=== PATIENT | female | born 1990 | race Caucasian/White ===

== ENCOUNTER 2016-05-19 11:29 | Emergency (ER) | payer OTHER ==
[2016-05-19 11:44] VITALS: BMI 36.0
[2016-05-19] MEDS ORDERED: SODIUM CHLORIDE 1,000 ML IV STA ×2 (12:19→13:35)
[2016-05-19] MEDS ORDERED: KETOROLAC TROMETHAMINE 30 MG/1 ML VIAL IVPUSH ONE (12:39)
[2016-05-19] MEDS ORDERED: KETOROLAC TROMETHAMINE 30 MG/1 ML VIAL ONE (12:46)
--- NOTE | 2016-05-19 12:52 | PDOC ---
History of Present Illness - General Chief Complaint: Pain Stated Complaint: FEVER, BACK PAIN, IMBALANCE Time Seen by Provider: 05/19/16 12:02 History Source: Patient Exam Limitations: No Limitations - History of Present Illness Travel History: No Initial Comments: 05/19/16 12:55 26-year-old female with history of renal colic and stent placement under the care of Dr. Diana presents the ED with complaints of urinary frequency and urgency for the past 2 days now associated with bilateral flank pain back pain, and fever. Patient also mentions that her throat has been hurting her and causing difficulty swallowing since last night. Patient denies nausea, headache , dizziness, upper abdominal pain, irregular menses, or diarrhea. Timing/Duration: reports: getting worse Quality: reports: mild, cramping, sharpness Abdominal Pain Onset Location: reports: flank Pain Radiation: reports: no radiation Activities at Onset: reports: none Aggravating Factors: improves with: None Alleviating Factors: improves with: None Past History - Past Medical History Allergies/Adverse Reactions: Allergies Allergy/AdvReac Type Severity Reaction Status Date / Time milk Allergy Verified 05/19/16 11:42 Penicillins Allergy Verified 05/19/16 11:42 piperacillin sodium Allergy Verified 05/19/16 11:42 [From Zosyn] tazobactam sodium Allergy Verified 05/19/16 11:42 [From Zosyn] tomato Allergy Verified 05/19/16 11:42 Home Medications: Ambulatory Orders Azithromycin [Zithromax 250mg Tablets -] 250 mg PO UTDICT #6 tab 05/19/16 Cardiac Disorders: Yes (IRREGULAR HEARTBEAT) Disorders: Yes (KIDNEY STONES) Kidney Stones: Yes Psychiatric Problems: Yes (anxiety) Suicide Attempt (Hx): No Thyroid Disease: Yes - Surgical History Abdominal Surgery: Yes Cholecystectomy: Yes - Psycho/Social/Smoking Cessation Hx Anxiety: Yes Suicidal Ideation: No Smoking Status: Yes Smoking History: Never smoked Have you smoked in the past 12 months: No Number of Cigarettes Smoked Daily: 2 If you are a former smoker, when did you quit?: 2012 Information on smoking cessation initiated: No 'Breaking Loose' booklet given: 06/23/14 Hx Alcohol Use: No Drug/Substance Use Hx: No Substance Use Type: None Hx Substance Use Treatment: No Patient Lives Alone: No Lives with/in: parents Review of Systems - Review of Systems Able to Perform ROS?: Yes Constitutional: Yes: Fever HEENTM: No: Symptoms Reported Respiratory: No: Symptoms reported Cardiac (ROS): No: Symptoms Reported ABD/GI: Yes: Abdominal cramping : Yes: Dysuria, Frequency, Flank Pain Musculoskeletal: Yes: Back Pain Integumentary: No: Symptoms Reported Neurological: No: Symptoms reported Endocrine: No: Symptoms Reported *Physical Exam - Vital Signs Last Vital Signs Temp Pulse Resp BP Pulse Ox 99 F 108 H 18 144/88 99 05/19/16 11:42 05/19/16 11:42 05/19/16 11:42 05/19/16 11:42 05/19/16 11:42 - Physical Exam General Appearance: Yes: Nourished, Appropriately Dressed. No: Apparent Distress HEENT: positive: Normal Voice, Pharyngeal Erythema (mild). negative: Pale Conjunctivae, Tonsillar Exudate Neck: positive: Supple Respiratory/Chest: positive: Lungs Clear, Normal Breath Sounds. negative: Respiratory Distress, Accessory Muscle Use Cardiovascular: positive: Regular Rhythm, Regular Rate. negative: Murmur Gastrointestinal/Abdominal: positive: Soft. negative: Tenderness Musculoskeletal: positive: CVA Tenderness (bilateral) Extremity: positive: Normal Capillary Refill. negative: Pedal Edema Integumentary: positive: Normal Color, Warm, Moist Neurologic: positive: Motor Strength 5/5 (ambulatory) ED Treatment Course - LABORATORY CBC & Chemistry Diagram: 05/19/16 12:30 05/19/16 12:30 - RADIOLOGY Radiology Studies Ordered: Category Date Time Status KIDNEY / RENAL US [US] Stat Ultrasound 05/19/16 12:21 Ordered Medical Decision Making - Medical Decision Making 05/19/16 12:59 Patient with history of renal colic complaining of urinary frequency now with sore throat and fever. Patient exam had CVA tenderness bilateral with mild erythema to her posterior pharynx. Patient ordered for labs including septic workup, kidney ultrasound, urine , and rapid strep. 05/19/16 13:34 Laboratory Tests 05/19/16 05/19/16 05/19/16 12:21 12:30 12:30 WBC 15.2 H Hgb 13.1 Hct 39.7 Plt Count 265 Neutrophils % 78.4 Sodium Potassium Carbon Dioxide Anion Gap Creatinine Lactic Acid AST ALT Urine Ketones Negative Urine Nitrite Negative Ur Leukocyte Esterase Negative Urine RBC 5 Urine WBC 2 Urine HCG, Qual Negative 05/19/16 05/19/16 12:30 12:30 WBC Hgb Hct Plt Count Neutrophils % Sodium 141 Potassium 3.9 Carbon Dioxide 28 D Anion Gap 9 Creatinine 0.9 Lactic Acid 0.766 AST 19 ALT 18 D Urine Ketones Urine Nitrite Ur Leukocyte Esterase Urine RBC Urine WBC Urine HCG, Qual Ultrasound shows no evidence of nephrolithiasis, hydronephrosis or acute pathology. Patient ordered for an additional bag of IV fluids and morphine. 05/19/16 14:18 Positive for strep a. Patient will be discharged home with Z-José Antonio. Patient aware that she will receive a phone call if the urine culture is positive. Patient otherwise can take Tylenol for discomfort and drink plenty of fluids, and take antibiotics. *DC/Admit/Observation/Transfer Diagnosis at time of Disposition: Bilateral flank pain, Strep throat - Discharge Dispostion Disposition: HOME Condition at time of disposition: Good - Prescriptions Prescriptions: Azithromycin [Zithromax 250mg Tablets -] 250 mg PO UTDICT #6 tab - Referrals Referrals: Brenda Luke [Primary Care Provider] - - Patient Instructions Printed Discharge Instructions: DI for Strep Throat, DI for Flank Pain Additional Instructions: At this time your urine does not show an infection but you will receive a phone call in 2 days if positive. In the interim you need to take azithromycin for strep throat, Tylenol for discomfort, and drink plenty of fluids.
[2016-05-19 12:54] LABS: BASOPHIL 0.3 % (0-2.0); EOSINOPHIL 0.1 % (0-4.5); MCH 28.8 pg (25.7-33.7); MCHC 32.9 g/dl (32.0-36.0); MEAN CELL VOLUME 87.3 fl (80-96); MEAN PLT VOLUME 7.9 fl (7.5-11.1); NEUTROPHILS 78.4 % (42.8-82.8); PLATELET COUNT 265 K/MM3 (134-434); RDW 13.3 % (11.6-15.6); WHITE BLOOD COUNT 15.2 K/mm3 (4.0-10.0)
[2016-05-19 12:57] LABS: URINE APPEARANCE CLEAR; URINE BILIRUBIN NEGATIVE (NEGATIVE); URINE COLOR YELLOW; URINE GLUCOSE (UA) NEGATIVE (NEGATIVE); URINE KETONE NEGATIVE (NEGATIVE); URINE LEUK ESTERASE NEGATIVE (NEGATIVE); URINE NITRITE NEGATIVE (NEGATIVE); URINE PROTEIN NEGATIVE (NEGATIVE); URINE UROBILINOGEN NEGATIVE E.U./dl (0.2-1.0)
[2016-05-19 13:00] LABS: URINE BLOOD 1+ (NEGATIVE)
[2016-05-19 13:07] LABS: URINE BACTERIA RARE /hpf (NONE SEEN); URINE MUCUS MODERATE; URINE RBC 5 /hpf (0-3); URINE WBC 2 /hpf (3-5)
[2016-05-19 13:16] LABS: ALBUMIN 3.7 g/dl (3.4-5.0); ANION GAP 9 (8-16); BILIRUBIN,TOTAL 0.4 mg/dL (0.2-1.0); CALCIUM 8.7 mg/dL (8.5-10.1); CO2 28 mmol/L (21-32); CREATININE 0.9 mg/dL (0.55-1.02); GLUCOSE,RANDOM 79 mg/dL (74-106); SGPT/ALT 18 U/L (12-78); TOT PROT 7.5 g/dl (6.4-8.2)
[2016-05-19 13:17] LABS: ALK PHOS 89 U/L (45-117)
[2016-05-19 13:28] LABS: SGOT/AST 19 U/L (15-37)
[2016-05-19] MEDS ORDERED: morphine CARPU-JECT 2 MG/1 ML DISP.SYRIN IVPUSH ONE (13:35)
[2016-05-19] MEDS ORDERED: morphine CARPU-JECT 4 MG/1 ML DISP.SYRIN ONE (13:41)
[2016-05-19 14:51] VITALS: BP 127/57; PULSE 73; TEMP 98.6
--- NOTE | 2016-05-21 14:17 | PDOC ---
Patient Follow-up (Call Back) - Post ED Follow - Up Condition at time of discharge: Good Disposition at time of original discharge: HOME Reason for Call Back: Abnwl. Microbiology (+[facility], pt currently on zpack +esbl ecoli on uti, sen to simone Called and left message for pt to call back)
== END 2016-05-19 16:05 | disposition home or self-care (01) ==
LOC: JER 11:29
PROC: 3E0337Z Introduction of Electrolytic and Water Balance Substance into Peripheral Vein, Percutaneous Approach (ICD-10-PCS; principal; 2016-05-19)
PROC: 3E033NZ Introduction of Analgesics, Hypnotics, Sedatives into Peripheral Vein, Percutaneous Approach (ICD-10-PCS; 2016-05-19)
PROC: 3E0333Z Introduction of Anti-inflammatory into Peripheral Vein, Percutaneous Approach (ICD-10-PCS; 2016-05-19)
DX: J02.0 Streptococcal pharyngitis (principal); B95.0 Streptococcus, group A, as the cause of diseases classified elsewhere
CPT/HCPCS: 36415; 76775-TC; 80053; 81003; 81015; 83605; 84703; 85025; 87040; 87070; 87086; 87186; 87430; 99283-25

== ENCOUNTER 2016-08-05 15:44 | Emergency (ER) | payer OTHER ==
[2016-08-05 15:56] VITALS: BP 126/75; PULSE 98; BMI 32.8
--- NOTE | 2016-08-05 16:13 | PDOC ---
History of Present Illness - General History Source: Patient, Old Records Exam Limitations: No Limitations - History of Present Illness Initial Comments: 08/05/16 18:49 The patient is a 26 year old female, with a significant past medical history of kidney stones, who presents to the emergency department with bilateral flank pain and dysuria since yesterday. She describes her pain as ranging from mild to moderate, without radiation or modifying factors. She denies taking any medication for the pain. She reports that her last episode of kidney stones was 4 months ago and her last CT scan was over 6 months. She also reports nausea and chills associated with her chief complaint. She notes that she is currently abstinence from sexual encounters. The patient denies chest pain, shortness of breath, headache and dizziness. Denies fever, vomit, diarrhea and constipation. Denies frequency, urgency and hematuria. Allergies: Penicillin, zosyn, milk and tomatoes Past surgical history: Cholecystectomy Social history: No alcohol, tobacco or drug use reported Urologyist - Dr. Marta Diana <Chilo Reynoso - Last Filed: 08/05/16 19:36> <Jovanni Baum - Last Filed: 08/05/16 23:36> - General Chief Complaint: Urinary Problem Stated Complaint: BACK PAIN, URINARY BURNING Time Seen by Provider: 08/05/16 16:11 Past History <Chilo Reynoso - Last Filed: 08/05/16 19:36> - Past Medical History Cardiac Disorders: Yes (IRREGULAR HEARTBEAT) Disorders: Yes (KIDNEY STONES) Kidney Stones: Yes Psychiatric Problems: Yes (anxiety) Suicide Attempt (Hx): No Thyroid Disease: Yes (hyper) - Surgical History Abdominal Surgery: Yes Cholecystectomy: Yes - Psycho/Social/Smoking Cessation Hx Anxiety: Yes Suicidal Ideation: No Smoking Status: Yes Smoking History: Never smoked Have you smoked in the past 12 months: No Number of Cigarettes Smoked Daily: 2 If you are a former smoker, when did you quit?: 2012 'Breaking Loose' booklet given: 06/23/14 Hx Alcohol Use: Yes (on weekends.) Drug/Substance Use Hx: No Substance Use Type: None Hx Substance Use Treatment: No <Jovanni Baum - Last Filed: 08/05/16 23:36> - Past Medical History Allergies/Adverse Reactions: Allergies Allergy/AdvReac Type Severity Reaction Status Date / Time milk Allergy Verified 08/05/16 15:53 Penicillins Allergy Verified 08/05/16 15:53 piperacillin sodium Allergy Verified 08/05/16 15:53 [From Zosyn] tazobactam sodium Allergy Verified 08/05/16 15:53 [From Zosyn] tomato Allergy Verified 08/05/16 15:53 Home Medications: Ambulatory Orders Methocarbamol [Robaxin -] 1,500 mg PO BID #30 tablet 08/05/16 Nitrofurantoin Monohyd/M-Cryst [Macrobid -] 100 mg PO BID #20 capsule 08/05/16 Review of Systems - Review of Systems Able to Perform ROS?: Yes Comments:: 08/05/16 18:50 CONSTITUTIONAL: (+) Chills. No fever, no fatigue EYES: No visual changes ENT: No ear pain, no sore throat CARDIOVASCULAR: No chest pain, no palpitations RESPIRATORY: No cough, no SOB GI: No abdominal pain, no vomiting, no constipation, no diarrhea GENITOURINARY: (+) Flank pain, dysuria. No frequency, no hematuria MUSKULOSKELETAL: No backpain, no joint pain, no myalgias SKIN: No rash NEURO: No headache <Chilo Reynoso - Last Filed: 08/05/16 19:36> *Physical Exam - Vital Signs Last Vital Signs Temp Pulse Resp BP Pulse Ox 98.5 F 98 H 18 126/75 100 08/05/16 15:53 08/05/16 15:53 08/05/16 15:53 08/05/16 15:53 08/05/16 15:53 <Chilo Reynoso - Last Filed: 08/05/16 19:36> - Vital Signs Last Vital Signs Temp Pulse Resp BP Pulse Ox 98.5 F 98 H 18 126/75 100 08/05/16 15:53 08/05/16 15:53 08/05/16 15:53 08/05/16 15:53 08/05/16 15:53 - Physical Exam Comments: 08/05/16 18:56 EXAMINATION CONSTITUTIONAL: Awake and alert; well-nourished; writhing in pain HEAD: Normocephalic; atraumatic EYES: PERRL; EOM intact ENMT: External appears normal; normal oropharynx NECK: Supple; non-tender; no cervical lymphadenopathy CARD: Normal S1, S2; no murmurs, rubs, or gallops RESP: Normal chest excursion with respiration; breath sounds clear and equal bilaterally; no wheezes, rhonchi, or rales ABD: Soft, non-distended; non-tender; no palpable organomegaly, no palpable hernias; + CVA tenderness bilaterally; BACK: No obvious deformity; + midline and paraspinal tenderness at T12/L 1/L2/ L3; EXT: Normal ROM in all four extremities; non-tender to palpation; distal pulses intact; straight leg raise is negative bilaterally; DTRs are +2 at the ankle and knee joints bilaterally; SKIN: Warm, dry, no rash NEURO: Cranial nerves II through XII are grossly intact; motor is 5 of 54; no pronation drift; gait-stable. <Jovanni Baum - Last Filed: 08/05/16 23:36> ED Treatment Course - LABORATORY CBC & Chemistry Diagram: 08/05/16 16:25 08/05/16 16:25 - RADIOLOGY Radiograph Interpretation: 08/05/16 19:32 CT renal stone Reviewed by: Dr. Althea Garcia Impression: Couple of tiny nonobstructing left renal lower pole stones are again seen. Previously visualized tiny nonobstructing right renal stone is no longer seen. There is no evidence of hydroureteronephrosis or ureteral stone, bilaterally. <Chilo Reynoso - Last Filed: 08/05/16 19:36> - LABORATORY CBC & Chemistry Diagram: 08/05/16 16:25 08/05/16 16:25 <Jovanni Baum - Last Filed: 08/05/16 23:36> Medical Decision Making - Medical Decision Making 08/05/16 23:35 Patient is a 26-year-old female with history of hyperparathyroidism, nephrolithiasis who presents with atraumatic bilateral flank and lower back pain for the past several days with tactile fevers and chills. Patient also complains of mild dysuria. In the ER, patient is awake and alert, nontoxic- appearing, afebrile with bilateral flank and midline lower back tenderness to palpation. Urinalysis reveals no evidence of pyuria. CT of abdomen and pelvis reveals no evidence of obstructive uropathy. There is no evidence of hydroureter or hydronephrosis. There is no evidence of compression fracture of the vertebra. Review of previous visits revealed that patients urine culture was positive for Escherichia coli while the urinalysis was within normal limit. Urine cultures been obtained and IV gentamicin has been administered. Will discharge with Macrobid which was shown to be effective against Escherichia coli during previous positive urine culture. We'll also discharge with Robaxin for low back pain. <Jovanni Baum - Last Filed: 08/05/16 23:36> *DC/Admit/Observation/Transfer - Attestations Scribe Attestion: 08/05/16 16:30 Documentation prepared by Chilo Reynoso, acting as medical cost consultant for Jovanni Baum MD <Chilo Reynoso - Last Filed: 08/05/16 19:36> - Attestations Physician Attestion: 08/05/16 23:33 The documentation was prepared by the scribe under my direct supervision. I have reviewed the documentation which correctly represents the findings, medical decision-making and critical action taken by me. <Jovanni Baum - Last Filed: 08/05/16 23:36> Diagnosis at time of Disposition: UTI (lower urinary tract infection) Back pain Qualifiers: Back pain location: low back pain Chronicity: acute Back pain laterality: midline Sciatica presence: without sciatica Qualified Code(s): M54.5 - Low back pain - Discharge Dispostion Disposition: HOME Condition at time of disposition: Stable - Prescriptions Prescriptions: Nitrofurantoin Monohyd/M-Cryst [Macrobid -] 100 mg PO BID #20 capsule Methocarbamol [Robaxin -] 1,500 mg PO BID #30 tablet - Referrals Referrals: Brenda Luke [Primary Care Provider] - - Patient Instructions Printed Discharge Instructions: DI for Urinary Tract Infection (UTI), DI for Low Back Pain
[2016-08-05] MEDS ORDERED: KETOROLAC TROMETHAMINE 30 MG/1 ML VIAL ONE (16:24)
[2016-08-05] MEDS ORDERED: ONDANSETRON 4 MG/2 ML VIAL ONE (16:24)
[2016-08-05] MEDS ORDERED: morphine CARPU-JECT 4 MG/1 ML DISP.SYRIN ONE (16:24)
[2016-08-05] MEDS ORDERED: KETOROLAC TROMETHAMINE 30 MG/1 ML VIAL IVPUSH ONE (16:25)
[2016-08-05] MEDS ORDERED: morphine CARPU-JECT 4 MG/1 ML DISP.SYRIN IVPUSH ONE (16:25)
[2016-08-05] MEDS ORDERED: SODIUM CHLORIDE 1,000 ML IV STA (16:25)
[2016-08-05 16:55] LABS: URINE APPEARANCE CLEAR; URINE BILIRUBIN NEGATIVE (NEGATIVE); URINE COLOR YELLOW; URINE GLUCOSE (UA) NEGATIVE (NEGATIVE); URINE KETONE 1+ (NEGATIVE); URINE LEUK ESTERASE NEGATIVE (NEGATIVE); URINE NITRITE NEGATIVE (NEGATIVE); URINE PROTEIN NEGATIVE (NEGATIVE); URINE UROBILINOGEN NEGATIVE E.U./dl (0.2-1.0)
[2016-08-05 17:03] LABS: BASOPHIL 0.2 % (0-2.0); EOSINOPHIL 0.1 % (0-4.5); MCH 28.6 pg (25.7-33.7); MCHC 32.8 g/dl (32.0-36.0); MEAN CELL VOLUME 87.2 fl (80-96); MEAN PLT VOLUME 8.2 fl (7.5-11.1); NEUTROPHILS 75.9 % (42.8-82.8); PLATELET COUNT 275 K/MM3 (134-434); RDW 13.2 % (11.6-15.6); WHITE BLOOD COUNT 12.9 K/mm3 (4.0-10.0)
[2016-08-05 17:05] LABS: ALK PHOS 83 U/L (45-117); ANION GAP 10 (8-16); BILIRUBIN,TOTAL 0.4 mg/dL (0.2-1.0); CALCIUM 9.1 mg/dL (8.5-10.1); CO2 26 mmol/L (21-32); GLUCOSE,RANDOM 90 mg/dL (74-106); SGOT/AST 18 U/L (15-37); SGPT/ALT 20 U/L (12-78); TOT PROT 7.8 g/dl (6.4-8.2)
[2016-08-05 17:06] LABS: URINE BLOOD 1+ (NEGATIVE)
[2016-08-05] MEDS ORDERED: SODIUM CHLORIDE 500 ML IV STA (17:12)
[2016-08-05 17:13] LABS: URINE BACTERIA RARE /hpf (NONE SEEN); URINE MUCUS RARE; URINE RBC 14 /hpf (0-3); URINE WBC 3 /hpf (3-5)
[2016-08-05] MEDS ORDERED: traMADol HCL 50 MG TABLET PO ONE (17:32)
[2016-08-05] MEDS ORDERED: traMADol HCL 50 MG TABLET ONE (17:38)
[2016-08-05] MEDS ORDERED: METHOCARBAMOL 500 MG TABLET ONE (20:03)
[2016-08-05] MEDS ORDERED: METHOCARBAMOL 500 MG TABLET PO ONE (20:08)
[2016-08-05] MEDS ORDERED: GENTAMICIN INJECTION 100 MG in SODIUM CHLORIDE 97.5 ML IVPB ONE (21:20)
[2016-08-05] MEDS ORDERED: ACETAMINOPHEN 325 MG TABLET (FP) ONE (21:25)
[2016-08-05] MEDS ORDERED: ACETAMINOPHEN 500 MG TABLET (FP) PO ONE (21:26)
[2016-08-05 23:05] VITALS: TEMP 99.6
[2016-08-05] MEDS ORDERED: IBUPROFEN 400 MG TABLET (FP) PO ONE ×2 (23:05→23:06)
--- NOTE | 2016-08-06 12:02 | PDOC ---
*Physical Exam - Vital Signs Last Vital Signs Temp Pulse Resp BP Pulse Ox 99.6 F 98 H 18 126/75 100 08/05/16 23:05 08/05/16 15:53 08/05/16 15:53 08/05/16 15:53 08/05/16 15:53 ED Treatment Course - LABORATORY CBC & Chemistry Diagram: 08/05/16 16:25 08/05/16 16:25 - ADDITIONAL ORDERS Additional order review: 08/05/16 16:25 RBC 4.76 MCV 87.2 MCHC 32.8 RDW 13.2 MPV 8.2 Neutrophils % 75.9 Lymphocytes % 15.6 Monocytes % 8.2 Eosinophils % 0.1 Basophils % 0.2 - Medications Given in the ED: ED Medications Discontinued Medications Generic Name Dose Route Start Last Admin Trade Name Mena PRN Reason Stop Dose Admin Acetaminophen 1,000 mg 08/05/16 21:26 08/05/16 21:28 Tylenol - PO 08/05/16 21:27 1,000 mg ONCE ONE Administration Sodium Chloride 1,000 mls @ 1,000 mls/hr 08/05/16 16:25 08/05/16 16:42 Normal Saline - IV 08/05/16 17:24 1,000 mls/hr ASDIR STA Administration Sodium Chloride 500 mls @ 500 mls/hr 08/05/16 17:12 08/05/16 17:42 Normal Saline - IV 08/05/16 18:11 500 mls/hr ASDIR STA Administration Gentamicin Sulfate 100 mg/ 100 mls @ 100 mls/hr 08/05/16 21:20 08/05/16 22:00 Sodium Chloride IVPB 08/05/16 22:19 100 mls/hr ONCE ONE Administration Ibuprofen 400 mg 08/05/16 23:05 08/05/16 23:07 Motrin - PO 08/05/16 23:06 400 mg ONCE ONE Administration Ketorolac Tromethamine 30 mg 08/05/16 16:25 08/05/16 16:42 Toradol Injection - IVPUSH 08/05/16 16:26 30 mg ONCE ONE Administration Methocarbamol 1,500 mg 08/05/16 20:08 08/05/16 20:00 Robaxin - PO 08/05/16 20:09 1,500 mg ONCE ONE Administration Morphine Sulfate 4 mg 08/05/16 16:25 08/05/16 16:41 Morphine Injection - IVPUSH 08/05/16 16:26 4 mg ONCE ONE Administration Tramadol HCl 50 mg 08/05/16 17:32 08/05/16 17:42 Ultram - PO 08/05/16 17:33 50 mg ONCE ONE Administration Medical Decision Making - Medical Decision Making 08/06/16 12:00 Called about the ionized calcium that was sent on this patient It was sent in the wrong tube and can not be sent out The patient was discharged to home with a diagnosis of UTI Will contact attending that saw this patient primarily *DC/Admit/Observation/Transfer Diagnosis at time of Disposition: UTI (lower urinary tract infection) Back pain Qualifiers: Back pain location: low back pain Chronicity: acute Back pain laterality: midline Sciatica presence: without sciatica Qualified Code(s): M54.5 - Low back pain - Discharge Dispostion Disposition: HOME Condition at time of disposition: Stable - Prescriptions Prescriptions: Nitrofurantoin Monohyd/M-Cryst [Macrobid -] 100 mg PO BID #20 capsule Methocarbamol [Robaxin -] 1,500 mg PO BID #30 tablet - Referrals Referrals: Brenda Luke [Primary Care Provider] - - Patient Instructions Printed Discharge Instructions: DI for Low Back Pain, DI for Urinary Tract Infection (UTI) - Post Discharge Activity
== END 2016-08-05 23:49 | disposition home or self-care (01) ==
LOC: JER 15:44
PROC: 3E0337Z Introduction of Electrolytic and Water Balance Substance into Peripheral Vein, Percutaneous Approach (ICD-10-PCS; principal; 2016-08-05)
PROC: 3E03329 Introduction of Other Anti-infective into Peripheral Vein, Percutaneous Approach (ICD-10-PCS; 2016-08-05)
PROC: 3E0333Z Introduction of Anti-inflammatory into Peripheral Vein, Percutaneous Approach (ICD-10-PCS; 2016-08-05)
PROC: 3E033NZ Introduction of Analgesics, Hypnotics, Sedatives into Peripheral Vein, Percutaneous Approach (ICD-10-PCS; 2016-08-05)
DX: N39.0 Urinary tract infection, site not specified (principal)
CPT/HCPCS: 36415; 74176; 80053; 81003; 81015; 82330; 84703; 85025; 87086; 87186; 99283-25

== ENCOUNTER 2016-10-11 07:39 | Emergency (ER) | payer OTHER ==
[2016-10-11 07:54] VITALS: BP 130/83; PULSE 71; TEMP 97.6; BMI 35.4
--- NOTE | 2016-10-11 08:08 | PDOC ---
History of Present Illness - General Chief Complaint: Pain, Acute Stated Complaint: flank pain Time Seen by Provider: 10/11/16 08:04 History Source: Patient Exam Limitations: No Limitations - History of Present Illness Initial Comments: 10/11/16 08:28 26F with repeated history of UTI's and kidney stones presents today with symptoms she describes as her usual presentation for kidney stones: left flank pain radiating to the groin with 10/10 pain upon movement and episodes of vomiting. Patient is currently unable to urinate. Last urination was yesterday. Currently on her period. Last kidney stone history was in January and was treated with lithotripsy by Dr. Diaan. 10/11/16 08:38 Past History - Past Medical History Allergies/Adverse Reactions: Allergies Allergy/AdvReac Type Severity Reaction Status Date / Time azithromycin [From Zithromax] Allergy Verified 10/11/16 07:55 milk Allergy Verified 08/05/16 15:53 morphine Allergy Verified 10/11/16 07:55 Penicillins Allergy Verified 08/05/16 15:53 piperacillin sodium Allergy Verified 08/05/16 15:53 [From Zosyn] tazobactam sodium Allergy Verified 08/05/16 15:53 [From Zosyn] tomato Allergy Verified 08/05/16 15:53 Home Medications: Ambulatory Orders Naproxen [Naprosyn -] 500 mg PO BID PRN #14 tablet 10/11/16 Tamsulosin HCl [Flomax] 0.4 mg PO DAILY #14 cap.er.24h 10/11/16 Cardiac Disorders: Yes (IRREGULAR HEARTBEAT) Disorders: Yes (KIDNEY STONES) Kidney Stones: Yes Psychiatric Problems: Yes (anxiety) Suicide Attempt (Hx): No Thyroid Disease: Yes (hyper) - Surgical History Abdominal Surgery: Yes (rt kidney stent removal, lithotripsy) Cholecystectomy: Yes - Psycho/Social/Smoking Cessation Hx Anxiety: Yes Suicidal Ideation: No Smoking Status: Yes Smoking History: Never smoked Have you smoked in the past 12 months: No Number of Cigarettes Smoked Daily: 2 If you are a former smoker, when did you quit?: 2012 Information on smoking cessation initiated: No 'Breaking Loose' booklet given: 06/23/14 Hx Alcohol Use: No Drug/Substance Use Hx: No Substance Use Type: None Hx Substance Use Treatment: No *Physical Exam - Vital Signs Last Vital Signs Temp Pulse Resp BP Pulse Ox 97.6 F 71 18 130/83 98 10/11/16 07:53 10/11/16 07:53 10/11/16 07:53 10/11/16 07:53 10/11/16 07:53 ED Treatment Course - LABORATORY CBC & Chemistry Diagram: 10/11/16 08:12 10/11/16 08:12 Medical Decision Making - Medical Decision Making 10/11/16 11:34 26F with h/o recurrent UTi's and renolithiasis present with left flank pain and difficulty urinating. Renal CT negative. Blood in UA. *DC/Admit/Observation/Transfer - Prescriptions Prescriptions: Tamsulosin HCl [Flomax] 0.4 mg PO DAILY #14 cap.er.24h Naproxen [Naprosyn -] 500 mg PO BID PRN #14 tablet PRN Reason: Pain
[2016-10-11] MEDS ORDERED: HYDROmorphone HCL CARPU-JECT 1 MG/1 ML DISP.SYRIN IVPUSH ONE ×2 (08:17→08:37)
[2016-10-11] MEDS ORDERED: ONDANSETRON 4 MG/2 ML VIAL IVPUSH ONE (08:23)
[2016-10-11] MEDS ORDERED: SODIUM CHLORIDE 1,000 ML IV STA (08:23)
[2016-10-11] MEDS ORDERED: HYDROmorphone HCL CARPU-JECT 1 MG/1 ML DISP.SYRIN ONE ×2 (08:27→08:37)
[2016-10-11 08:29] LABS: BASOPHIL 0.5 % (0-2.0); EOSINOPHIL 0.4 % (0-4.5); MCH 28.8 pg (25.7-33.7); MCHC 33.2 g/dl (32.0-36.0); MEAN CELL VOLUME 86.9 fl (80-96); MEAN PLT VOLUME 7.8 fl (7.5-11.1); NEUTROPHILS 59.4 % (42.8-82.8); PLATELET COUNT 304 K/MM3 (134-434); RDW 13.9 % (11.6-15.6); WHITE BLOOD COUNT 10.6 K/mm3 (4.0-10.0)
[2016-10-11] MEDS ORDERED: ONDANSETRON 4 MG/2 ML VIAL ONE (08:33)
[2016-10-11 08:51] LABS: ALBUMIN 3.6 g/dl (3.4-5.0); ALK PHOS 82 U/L (45-117); ANION GAP 9 (8-16); BILIRUBIN,TOTAL 0.3 mg/dL (0.2-1.0); CALCIUM 8.6 mg/dL (8.5-10.1); CO2 26 mmol/L (21-32); CREATININE 0.8 mg/dL (0.55-1.02); GLUCOSE,RANDOM 72 mg/dL (74-106); SGPT/ALT 25 U/L (12-78); TOT PROT 7.2 g/dl (6.4-8.2)
[2016-10-11 08:52] LABS: SGOT/AST 18 U/L (15-37)
--- NOTE | 2016-10-11 08:59 | PDOC ---
Attending Attestation - Resident Resident Name: DaveKem - ED Attending Attestation I have performed the following: I have examined & evaluated the patient, The case was reviewed & discussed with the resident, I agree w/resident's findings & plan, Exceptions are as noted - HPI HPI: 10/11/16 08:59 26 year old female past medical history of thyroid disorder, kidney stones presents with left flank pain starting this morning. Patient reports left flank radiates to the left lower quadrant. Reports significant amount of pain is constant with associated nausea and vomiting. Patient reports that this feels exactly like her kidney stones. Denies fevers. Denies urinary hesitance. - Physicial Exam PE: 10/11/16 09:00 GENERAL: Awake, alert, and fully oriented. Uncomfortable appearing. HEAD: No signs of trauma EYES: PERRLA, EOMI, sclera anicteric, conjunctiva clear ENT: Auricles normal inspection, hearing grossly normal, nares patent, oropharynx clear without exudates. NECK: Normal ROM, supple, no lymphadenopathy, JVD, or masses LUNGS: Breath sounds equal, clear to auscultation bilaterally. No wheezes, and no crackles HEART: Regular rate and rhythm, normal S1 and S2, no murmurs, rubs or gallops ABDOMEN: TTP LLQ. Soft, normoactive bowel sounds. No guarding, no rebound. No masses. + L sided CVA tenderness EXTREMITIES: Normal range of motion, no edema. No clubbing or cyanosis. No cords, erythema, or tenderness NEUROLOGICAL: Cranial nerves II through XII grossly intact. Normal speech, normal gait SKIN: Warm, Dry, normal turgor, no rashes or lesions noted. - Medical Decision Making 10/11/16 09:01 Vital Signs Temp Pulse Resp BP Pulse Ox 97.6 F 71 18 130/83 98 10/11/16 07:53 10/11/16 07:53 10/11/16 07:53 10/11/16 07:53 10/11/16 07:53 Likely renal colic. Labs Urine preg UA Spiral CT Pain control, IVF, reassess 10/11/16 11:27 CBC, BMP 10/11/16 08:12 10/11/16 08:12 CMP Sodium 141 mmol/L (136-145) 10/11/16 08:12 Potassium 4.2 mmol/L (3.5-5.1) 10/11/16 08:12 Chloride 106 mmol/L (98-107) 10/11/16 08:12 Carbon Dioxide 26 mmol/L (21-32) 10/11/16 08:12 Anion Gap 9 (8-16) 10/11/16 08:12 BUN 12 mg/dL (7-18) D 10/11/16 08:12 Creatinine 0.8 mg/dL (0.55-1.02) 10/11/16 08:12 Creat Clearance w eGFR > 60 (>60) 10/11/16 08:12 Random Glucose 72 mg/dL (74-106) L 10/11/16 08:12 Calcium 8.6 mg/dL (8.5-10.1) 10/11/16 08:12 Total Bilirubin 0.3 mg/dL (0.2-1.0) D 10/11/16 08:12 AST 18 U/L (15-37) 10/11/16 08:12 ALT 25 U/L (12-78) D 10/11/16 08:12 Alkaline Phosphatase 82 U/L (45-117) 10/11/16 08:12 Total Protein 7.2 g/dl (6.4-8.2) 10/11/16 08:12 Albumin 3.6 g/dl (3.4-5.0) 10/11/16 08:12 Urine Test Results Urine Color Lt. red 10/11/16 09:40 Urine Appearance Clear 10/11/16 09:40 Urine pH 6.5 (5.0-8.0) 10/11/16 09:40 Urine Protein Trace (NEGATIVE) H 10/11/16 09:40 Urine Glucose (UA) Negative (NEGATIVE) 10/11/16 09:40 Urine Ketones Negative (NEGATIVE) 10/11/16 09:40 Urine Blood 3+ (NEGATIVE) H 10/11/16 09:40 Urine Nitrite Negative (NEGATIVE) 10/11/16 09:40 Urine Bilirubin Negative (NEGATIVE) 10/11/16 09:40 Ur Leukocyte Esterase Negative (NEGATIVE) 10/11/16 09:40 Labs reviewed. UA with 3+ blood. CT demonstrates likely passed left sided kidney stone. If patient feeling better, will d/c as renal colic.
[2016-10-11 10:04] LABS: PH,URINE 6.5 (5.0-8.0); URINE APPEARANCE CLEAR; URINE BILIRUBIN NEGATIVE (NEGATIVE); URINE BLOOD 3+ (NEGATIVE); URINE COLOR LT. RED; URINE GLUCOSE (UA) NEGATIVE (NEGATIVE); URINE KETONE NEGATIVE (NEGATIVE); URINE LEUK ESTERASE NEGATIVE (NEGATIVE); URINE NITRITE NEGATIVE (NEGATIVE); URINE PROTEIN TRACE (NEGATIVE); URINE UROBILINOGEN 0.2 mg/dL (0.2-1.0)
[2016-10-11 11:29] LABS: URINE MUCUS RARE; URINE RBC 1409 /hpf (0-3); URINE WBC 8 /hpf (3-5)
[2016-10-11] MEDS ORDERED: KETOROLAC TROMETHAMINE 60 MG/2 ML VIAL IVPUSH ONE (11:30)
[2016-10-11] MEDS ORDERED: KETOROLAC TROMETHAMINE 60 MG/2 ML VIAL ONE (11:34)
[2016-10-11] MEDS ORDERED: TAMSULOSIN HCL 0.4 MG CAP.ER.24H (FP) PO ONE (11:38)
[2016-10-11] MEDS ORDERED: TAMSULOSIN HCL 0.4 MG CAP.ER.24H (FP) ONE (12:04)
--- NOTE | 2016-10-11 12:13 | PDOC ---
*Physical Exam - Vital Signs Last Vital Signs Temp Pulse Resp BP Pulse Ox 97.6 F 71 18 130/83 98 10/11/16 07:53 10/11/16 07:53 10/11/16 07:53 10/11/16 07:53 10/11/16 07:53 ED Treatment Course - LABORATORY CBC & Chemistry Diagram: 10/11/16 08:12 10/11/16 08:12 - ADDITIONAL ORDERS Additional order review: Laboratory Results 10/11/16 10/11/16 09:40 08:12 Sodium 141 Potassium 4.2 Chloride 106 Carbon Dioxide 26 Anion Gap 9 BUN 12 D Creatinine 0.8 Creat Clearance w eGFR > 60 Random Glucose 72 L Calcium 8.6 Total Bilirubin 0.3 D AST 18 ALT 25 D Alkaline Phosphatase 82 Total Protein 7.2 Albumin 3.6 Urine Color Lt. red Urine Appearance Clear Urine pH 6.5 Urine Protein Trace H Urine Glucose (UA) Negative Urine Ketones Negative Urine Blood 3+ H Urine Nitrite Negative Urine Bilirubin Negative Urine Urobilinogen 0.2 Ur Leukocyte Esterase Negative Urine RBC 1409 Urine WBC 8 Ur Epithelial Cells Rare Urine Mucus Rare Urine HCG, Qual Negative 10/11/16 08:12 RBC 4.45 MCV 86.9 MCHC 33.2 RDW 13.9 MPV 7.8 Neutrophils % 59.4 D Lymphocytes % 34.2 D Monocytes % 5.5 Eosinophils % 0.4 D Basophils % 0.5 - Medications Given in the ED: ED Medications Discontinued Medications Generic Name Dose Route Start Last Admin Trade Name Camdenq PRN Reason Stop Dose Admin Hydromorphone HCl 0.5 mg 10/11/16 08:17 10/11/16 08:32 Dilaudid Injection - IVPUSH 10/11/16 08:18 0.5 mg ONCE ONE Administration Hydromorphone HCl 0.5 mg 10/11/16 08:37 10/11/16 08:48 Dilaudid Injection - IVPUSH 10/11/16 08:38 0.5 mg ONCE ONE Administration Sodium Chloride 1,000 mls @ 1,000 mls/hr 10/11/16 08:23 10/11/16 08:32 Normal Saline - IV 10/11/16 09:22 1,000 mls/hr ASDIR STA Administration Ketorolac Tromethamine 60 mg 10/11/16 11:30 10/11/16 11:52 Toradol Injection - IVPUSH 10/11/16 11:31 60 mg ONCE ONE Administration Ondansetron HCl 4 mg 10/11/16 08:23 10/11/16 08:48 Zofran Injection IVPUSH 10/11/16 08:24 4 mg ONCE ONE Administration Tamsulosin HCl 0.4 mg 10/11/16 11:38 10/11/16 12:07 Flomax - PO 10/11/16 11:39 0.4 mg ONCE ONE Administration Medical Decision Making - Medical Decision Making 10/11/16 12:10 Pt reports feeling better. Will go home with her mother. I discussed the physical exam findings, ancillary test results and final diagnoses with the patient. I answered all of the patient's questions. The patient was satisfied with the care received and felt comfortable with the discharge plan and treatment plan. The patient will call their primary care physician within 24 hours to arrange follow-up and will return to the Emergency Department with any new, persistant or worsening symptoms. *DC/Admit/Observation/Transfer Diagnosis at time of Disposition: Renal colic - Discharge Dispostion Disposition: HOME Condition at time of disposition: Improved Admit: No - Prescriptions Prescriptions: Tamsulosin HCl [Flomax] 0.4 mg PO DAILY #14 cap.er.24h Naproxen [Naprosyn -] 500 mg PO BID PRN #14 tablet PRN Reason: Pain Oxycodone HCl/Acetaminophen [Percocet 5-325 mg Tablet] 1 tab PO Q6H PRN #15 tablet MDD 4 PRN Reason: Severe Pain - Referrals Referrals: Arturo Ervin MD [Primary Care Provider] - - Patient Instructions Printed Discharge Instructions: Kidney Stones -- Adult Additional Instructions: Take flomax daily. Take 500 mg naproxen every 12 hours as needed for pain. Take a tablet of percocet every 6 hours as needed for severe pain. Drink plenty of fluids and rest. Follow up with your doctor.
== END 2016-10-11 12:27 | disposition home or self-care (01) ==
LOC: JER 07:39
PROC: 3E033NZ Introduction of Analgesics, Hypnotics, Sedatives into Peripheral Vein, Percutaneous Approach (ICD-10-PCS; principal; 2016-10-11)
PROC: 3E0333Z Introduction of Anti-inflammatory into Peripheral Vein, Percutaneous Approach (ICD-10-PCS; 2016-10-11)
PROC: 3E0337Z Introduction of Electrolytic and Water Balance Substance into Peripheral Vein, Percutaneous Approach (ICD-10-PCS; 2016-10-11)
DX: N23 Unspecified renal colic (principal); E07.9 Disorder of thyroid, unspecified; Z87.442 Personal history of urinary calculi; F41.9 Anxiety disorder, unspecified; R00.9 Unspecified abnormalities of heart beat
CPT/HCPCS: 36415; 74176; 80053; 81003; 81015; 84703; 85025; 99283-25

== ENCOUNTER 2016-12-02 00:55 | Emergency (ER) | payer OTHER ==
--- NOTE | 2016-12-02 01:16 | PDOC ---
History of Present Illness - General Chief Complaint: Urinary Problem Stated Complaint: URINARY PROBLEM/KIDNEY STONE PAIN Time Seen by Provider: 12/02/16 01:04 History Source: Patient - History of Present Illness Initial Comments: 12/02/16 01:20 26 year old female with left flank pain x1 day and anuria/ dysuria. patient has a history of kidney stones/ renal stents in the past. denies fever/chills, nausea/ vomiting, abdominal pain. Past History - Past Medical History Allergies/Adverse Reactions: Allergies Allergy/AdvReac Type Severity Reaction Status Date / Time azithromycin [From Zithromax] Allergy Verified 12/02/16 01:09 milk Allergy Verified 12/02/16 01:09 morphine Allergy Verified 12/02/16 01:09 Penicillins Allergy Verified 12/02/16 01:09 piperacillin sodium Allergy Verified 12/02/16 01:09 [From Zosyn] tazobactam sodium Allergy Verified 12/02/16 01:09 [From Zosyn] tomato Allergy Verified 12/02/16 01:09 Home Medications: Ambulatory Orders Cephalexin Monohydrate [Keflex -] 250 mg PO Q6H #40 capsule 12/02/16 Tramadol HCl [Ultram] 50 mg PO Q4H PRN 12/02/16 Cardiac Disorders: Yes (IRREGULAR HEARTBEAT) Disorders: Yes (KIDNEY STONES) Kidney Stones: Yes Psychiatric Problems: Yes (anxiety) Thyroid Disease: Yes (hyper) - Surgical History Abdominal Surgery: Yes (rt kidney stent removal, lithotripsy) Cholecystectomy: Yes - Suicide/Smoking/Psychosocial Hx Smoking Status: Yes Smoking History: Never smoked Have you smoked in the past 12 months: No Number of Cigarettes Smoked Daily: 2 If you are a former smoker, when did you quit?: 2012 Information on smoking cessation initiated: No 'Breaking Loose' booklet given: 06/23/14 Hx Alcohol Use: No Drug/Substance Use Hx: No Substance Use Type: None Hx Substance Use Treatment: No Review of Systems - Review of Systems Able to Perform ROS?: Yes Is the patient limited [place] proficient: No Constitutional: No: Symptoms Reported, See HPI, Chills, Diaphoresis, Fever, Loss of Appetite, Malaise, Night Sweats, Weakness, Weight Stable, Unintentional Wgt. Loss, Unexplained wgt Loss, Other Respiratory: No: Symptoms reported, See HPI, Cough, Orthopnea, Shortness of Breath, SOB with Exertion, SOB at Rest, Stridor, Wheezing, Productive cough, Hemoptysis, Other ABD/GI: No: Symptoms Reported, See HPI, Abdominal Distended, Abd. Pain w/ defecation, Blood Streaked Bowels, Constipated, Diarrhea, Difficulty Swallowing , Nausea, Poor Appetite, Poor Fluid Intake, Rectal Bleeding, Vomiting, Indigestion, Abdominal cramping, Tarry Stools, Other : Yes: Dysuria, Flank Pain (left), Urgency Musculoskeletal: No: Symptoms Reported, See HPI, Back Pain, Gout, Joint Pain, Joint Swelling, Muscle Pain, Muscle Weakness, Neck Pain, Joint Stiffness, Other *Physical Exam - Vital Signs Last Vital Signs Temp Pulse Resp BP Pulse Ox 98.7 F 76 14 135/85 100 12/02/16 01:10 12/02/16 01:10 12/02/16 01:10 12/02/16 01:10 12/02/16 01:10 - Physical Exam General Appearance: Yes: Mild Distress Respiratory/Chest: positive: Lungs Clear, Normal Breath Sounds Cardiovascular: positive: Regular Rhythm, Regular Rate Gastrointestinal/Abdominal: positive: Normal Bowel Sounds, Soft Musculoskeletal: positive: CVA Tenderness (L) Extremity: positive: Normal Capillary Refill, Normal Inspection, Normal Range of Motion Integumentary: positive: Normal Color, Dry, Warm Neurologic: positive: Fully Oriented, Alert, Normal Mood/Affect ED Treatment Course - LABORATORY CBC & Chemistry Diagram: 12/02/16 01:42 12/02/16 02:16 Progress Note - Progress Note Progress Note: A: left flank pain r/o kidney stone vs infection P: CBC CMP ua" + wbc urine culture urine IVF pain control antiemetics ceftriaxone. Medical Decision Making - Medical Decision Making 12/02/16 05:02 patient reporting unable to urinate/ minimal voiding. will straight cath to check post void residual. 12/02/16 05:17 PVR ~25. will d/c home. patient to follow up with urology. will d/c home with cephalexin. *DC/Admit/Observation/Transfer Diagnosis at time of Disposition: Flank pain, UTI (lower urinary tract infection) - Discharge Dispostion Disposition: HOME - Prescriptions Prescriptions: Cephalexin Monohydrate [Keflex -] 250 mg PO Q6H #40 capsule - Referrals Referrals: Arturo Ervin MD [Primary Care Provider] - - Patient Instructions Printed Discharge Instructions: Urinary Tract Infection Additional Instructions: drink plenty of fluids take cephalexin as sprescribed. follow up with your doctor/ urologist as soon as possible. return to the ER if symptoms worsen. - Post Discharge Activity Forms/Work/School Notes: Back to Work
[2016-12-02] MEDS ORDERED: SODIUM CHLORIDE 1,000 ML IV STA (01:30)
[2016-12-02 01:32] LABS: URINE APPEARANCE CLOUDY; URINE BILIRUBIN NEGATIVE (NEGATIVE); URINE BLOOD 1+ (NEGATIVE); URINE COLOR YELLOW; URINE GLUCOSE (UA) NEGATIVE (NEGATIVE); URINE KETONE NEGATIVE (NEGATIVE); URINE LEUK ESTERASE TRACE (NEGATIVE); URINE NITRITE NEGATIVE (NEGATIVE); URINE PROTEIN NEGATIVE (NEGATIVE); URINE UROBILINOGEN NEGATIVE mg/dL (0.2-1.0)
[2016-12-02] MEDS ORDERED: ONDANSETRON 4 MG/2 ML VIAL IVPUSH ONE (01:37)
[2016-12-02] MEDS ORDERED: KETOROLAC TROMETHAMINE 30 MG/1 ML VIAL ONE (01:44)
[2016-12-02] MEDS ORDERED: ONDANSETRON 4 MG/2 ML VIAL ONE (01:45)
[2016-12-02 01:51] LABS: BASOPHIL 0.4 % (0-2.0); EOSINOPHIL 0.7 % (0-4.5); MCH 28.7 pg (25.7-33.7); MCHC 33.1 g/dl (32.0-36.0); MEAN CELL VOLUME 86.7 fl (80-96); MEAN PLT VOLUME 8.6 fl (7.5-11.1); NEUTROPHILS 51.8 % (42.8-82.8); PLATELET COUNT 282 K/MM3 (134-434); WHITE BLOOD COUNT 11.4 K/mm3 (4.0-10.0)
[2016-12-02 01:54] VITALS: BP 135/85; PULSE 76; BMI 32.9
[2016-12-02 01:56] LABS: URINE MUCUS RARE; URINE RBC 13 /hpf (0-3); URINE WBC 14 /hpf (3-5)
[2016-12-02] MEDS ORDERED: KETOROLAC TROMETHAMINE 30 MG/1 ML VIAL IVPUSH ONE (02:08)
[2016-12-02 02:55] LABS: ALBUMIN 3.4 g/dl (3.4-5.0); ANION GAP 8 (8-16); BILIRUBIN,TOTAL 0.2 mg/dL (0.2-1.0); CALCIUM 8.2 mg/dL (8.5-10.1); CO2 26 mmol/L (21-32); CREATININE 0.8 mg/dL (0.55-1.02); GLUCOSE,RANDOM 89 mg/dL (74-106); SGOT/AST 14 U/L (15-37); SGPT/ALT 15 U/L (12-78); TOT PROT 6.4 g/dl (6.4-8.2)
[2016-12-02 02:56] LABS: ALK PHOS 69 U/L (45-117)
[2016-12-02] MEDS ORDERED: morphine CARPU-JECT 4 MG/1 ML DISP.SYRIN IVPUSH ONE (03:10)
[2016-12-02] MEDS ORDERED: morphine CARPU-JECT 2 MG/1 ML DISP.SYRIN ONE (03:13)
--- NOTE | 2016-12-02 03:22 | PDOC ---
*Physical Exam - Vital Signs Last Vital Signs Temp Pulse Resp BP Pulse Ox 98.7 F 76 14 135/85 100 12/02/16 01:10 12/02/16 01:10 12/02/16 01:10 12/02/16 01:10 12/02/16 01:10 ED Treatment Course - LABORATORY CBC & Chemistry Diagram: 12/02/16 01:42 12/02/16 02:16 - ADDITIONAL ORDERS Additional order review: Laboratory Results 12/02/16 12/02/16 12/02/16 02:16 01:42 01:22 Sodium 141 Cancelled Potassium 4.0 Cancelled Chloride 107 Cancelled Carbon Dioxide 26 Cancelled Anion Gap 8 Cancelled BUN 11 Cancelled Creatinine 0.8 Cancelled Creat Clearance w eGFR > 60 Cancelled Random Glucose 89 D Cancelled Calcium 8.2 L Cancelled Total Bilirubin 0.2 D Cancelled AST 14 L D Cancelled ALT 15 D Cancelled Alkaline Phosphatase 69 Cancelled Total Protein 6.4 Cancelled Albumin 3.4 Cancelled Urine Color Yellow Urine Appearance Cloudy Urine pH 5.0 D Urine Protein Negative Urine Glucose (UA) Negative Urine Ketones Negative Urine Blood 1+ H Urine Nitrite Negative Urine Bilirubin Negative Urine Urobilinogen Negative Urine RBC 13 Urine WBC 14 Ur Epithelial Cells Moderate Urine Mucus Rare Urine HCG, Qual Negative 12/02/16 01:42 RBC 4.64 MCV 86.7 MCHC 33.1 RDW 14.0 MPV 8.6 D Neutrophils % 51.8 Lymphocytes % 40.1 H Monocytes % 7.0 Eosinophils % 0.7 Basophils % 0.4 - Medications Given in the ED: ED Medications Discontinued Medications Generic Name Dose Route Start Last Admin Trade Name Mena PRN Reason Stop Dose Admin Sodium Chloride 1,000 mls @ 1,000 mls/hr 12/02/16 01:30 12/02/16 01:42 Normal Saline - IV 12/02/16 02:29 1,000 mls/hr ASDIR STA Administration Ketorolac Tromethamine 30 mg 12/02/16 02:08 12/02/16 02:09 Toradol Injection - IVPUSH 12/02/16 02:09 30 mg ONCE ONE Administration Ondansetron HCl 4 mg 12/02/16 01:37 12/02/16 01:42 Zofran Injection IVPUSH 12/02/16 01:38 4 mg ONCE ONE Administration Medical Decision Making - Medical Decision Making 12/02/16 03:22 agree with care from MILAGRO Rowell *DC/Admit/Observation/Transfer Diagnosis at time of Disposition: Flank pain - Referrals Referrals: Arturo Ervin MD [Primary Care Provider] - - Patient Instructions - Post Discharge Activity
[2016-12-02 03:28] VITALS: TEMP 98.7
[2016-12-02] MEDS ORDERED: CEFTRIAXONE 1,000 MG in DEXTROSE 5%-WATER - 50 ML IVPB ONE (04:04)
[2016-12-02] MEDS ORDERED: CEFTRIAXONE 50 ML ONE (04:15)
--- NOTE | 2016-12-04 19:57 | PDOC ---
Patient Follow-up (Call Back) - Post ED Follow - Up Disposition at time of original discharge: HOME Reason for Call Back: Abnwl. Microbiology (+ ESBL in urine, Kelfex not reposnsive. Called patient to assess condition. Reports that sheis still not feeling well, had an allergic reaction to the Kelfex, had to receive a steroid injuction. Does not want another antibiotic called in for her. She wants to return back to the ER for evlaluation and treatment due to her multiple allergies. Patient returning this evening.)
== END 2016-12-02 05:33 | disposition home or self-care (01) ==
LOC: JER 00:55
PROC: 3E033NZ Introduction of Analgesics, Hypnotics, Sedatives into Peripheral Vein, Percutaneous Approach (ICD-10-PCS; principal; 2016-12-02)
PROC: 3E033GC Introduction of Other Therapeutic Substance into Peripheral Vein, Percutaneous Approach (ICD-10-PCS; 2016-12-02)
PROC: 3E0337Z Introduction of Electrolytic and Water Balance Substance into Peripheral Vein, Percutaneous Approach (ICD-10-PCS; 2016-12-02)
PROC: 3E03329 Introduction of Other Anti-infective into Peripheral Vein, Percutaneous Approach (ICD-10-PCS; 2016-12-02)
DX: N39.0 Urinary tract infection, site not specified (principal); R10.32 Left lower quadrant pain; Z87.891 Personal history of nicotine dependence; F41.9 Anxiety disorder, unspecified; E07.9 Disorder of thyroid, unspecified; Z95.5 Presence of coronary angioplasty implant and graft
CPT/HCPCS: 36415; 74176; 80053; 81003; 81015; 84703; 85025; 87086; 87186; 96361; 96365; 96375; 99283-25

== ENCOUNTER 2017-03-20 17:17 | Emergency (ER) | payer OTHER ==
[2017-03-20 17:23] VITALS: BP 155/82; PULSE 88; TEMP 99.3; BMI 33.6
--- NOTE | 2017-03-20 17:26 | PDOC ---
History of Present Illness <Michele Ramsey - Last Filed: 03/20/17 21:39> - History of Present Illness Initial Comments: 26F with with hyperthyroidism, multiple UTI's and kidney stones (s/p stent placements (last 1 year prior) and lithotripsy (last 6 months prior)) presents today with symptoms she describes as her usual presentation for kidney stones: left flank pain radiating to the groin with 10/10 pain upon movement and episodes of vomiting. Denies any hematuria, dysuria, but does have urinary retention. at all. Does also admit to left leg pain worse with walking. Also admits to NBNB vomiting, NB diarrhea but did have one episode of blood on the toilet paper two days prior. Denies chest pain, SOB, rash, constipation, focal neurological deficit, or other sick symptom. She is not on OCPs. Her urologist is Dr. Diana. 03/20/17 17:41 <Roney Grajeda - Last Filed: 03/20/17 22:44> - General Chief Complaint: Urinary Problem Stated Complaint: R/O PYELONEPHRITIS PAIN Time Seen by Provider: 03/20/17 17:26 Past History <Michele Ramsey - Last Filed: 03/20/17 21:39> - Past Medical History Cardiac Disorders: Yes (IRREGULAR HEARTBEAT) COPD: No Disorders: Yes (KIDNEY STONES,) Kidney Stones: Yes Psychiatric Problems: Yes (anxiety) Thyroid Disease: Yes (hyper) - Surgical History Abdominal Surgery: Yes (rt kidney stent removal, lithotripsy) Cholecystectomy: Yes - Suicide/Smoking/Psychosocial Hx Smoking Status: Yes Smoking History: Never smoked Have you smoked in the past 12 months: No Number of Cigarettes Smoked Daily: 2 If you are a former smoker, when did you quit?: 2013 Information on smoking cessation initiated: No 'Breaking Loose' booklet given: 06/23/14 Hx Alcohol Use: No Drug/Substance Use Hx: No Substance Use Type: None Hx Substance Use Treatment: No <Roney Grajeda - Last Filed: 03/20/17 22:44> - Past Medical History Allergies/Adverse Reactions: Allergies Allergy/AdvReac Type Severity Reaction Status Date / Time azithromycin [From Zithromax] Allergy Verified 03/20/17 17:19 milk Allergy Verified 03/20/17 17:19 morphine Allergy Verified 03/20/17 17:19 Penicillins Allergy Verified 03/20/17 17:19 piperacillin sodium Allergy Verified 03/20/17 17:19 [From Zosyn] tazobactam sodium Allergy Verified 03/20/17 17:19 [From Zosyn] tomato Allergy Verified 03/20/17 17:19 Home Medications: Ambulatory Orders Calcium Carbonate [Calcium] 500 mg PO DAILY 03/20/17 Cholecalciferol (Vitamin D3) [Vitamin D3] 5,000 unit PO WEEKLY 03/20/17 Liraglutide [Victoza -] 1.8 mg SQ DAILY@0700 03/20/17 Review of Systems - Review of Systems Constitutional: Yes: Chills, Fever, Loss of Appetite, Weakness HEENTM: No: Blurred Vision, Cataracts Respiratory: No: Cough, Shortness of Breath, Wheezing Cardiac (ROS): No: Chest Pain, Edema, Irregular Heart Rate, Chest Tightness ABD/GI: Yes: Diarrhea, Nausea, Rectal Bleeding, Vomiting. No: Blood Streaked Bowels, Constipated, Tarry Stools : Yes: Other (urinary retention). No: Dysuria, Discharge, Frequency, Hematuria, Incontinence Musculoskeletal: Yes: Back Pain, Muscle Pain <Roney Grajeda - Last Filed: 03/20/17 22:44> *Physical Exam - Vital Signs Last Vital Signs Temp Pulse Resp BP Pulse Ox 99.3 F 88 18 155/82 100 03/20/17 17:19 03/20/17 17:19 03/20/17 17:19 03/20/17 17:19 03/20/17 17:19 <Michele Ramsey - Last Filed: 03/20/17 21:39> - Vital Signs Last Vital Signs Temp Pulse Resp BP Pulse Ox 99.3 F 88 18 155/82 100 03/20/17 17:19 03/20/17 17:19 03/20/17 17:19 03/20/17 17:19 03/20/17 17:19 <Roney Grajeda - Last Filed: 03/20/17 22:44> ED Treatment Course - LABORATORY CBC & Chemistry Diagram: 03/20/17 18:22 03/20/17 19:30 - ADDITIONAL ORDERS Additional order review: Laboratory Results 03/20/17 03/20/17 03/20/17 19:30 18:22 18:06 Sodium 139 Cancelled Potassium 4.0 Cancelled Chloride 107 Cancelled Carbon Dioxide 23 Cancelled Anion Gap 9 Cancelled BUN 13 Cancelled Creatinine 0.9 Cancelled Creat Clearance w eGFR > 60 Cancelled Random Glucose 86 Cancelled Calcium 8.3 L Cancelled Total Bilirubin 0.3 D Cancelled AST 14 L Cancelled ALT 26 Cancelled Alkaline Phosphatase 84 Cancelled Total Protein 7.7 Cancelled Albumin 3.8 Cancelled Urine Color Yellow Urine Appearance Slcloudy Urine pH 5.0 Ur Specific [place] 1.028 Urine Protein Negative Urine Glucose (UA) Negative Urine Ketones 1+ H Urine Blood Negative Urine Nitrite Negative Urine Bilirubin Negative Urine Urobilinogen Negative Ur Leukocyte Esterase Negative Urine HCG, Qual Negative 03/20/17 18:22 RBC 4.80 MCV 87.9 MCHC 32.4 RDW 14.1 MPV 8.1 Neutrophils % 70.4 D Lymphocytes % 23.7 D Monocytes % 5.6 Eosinophils % 0.1 D Basophils % 0.2 - Medications Given in the ED: ED Medications Discontinued Medications Generic Name Dose Route Start Last Admin Trade Name Freq PRN Reason Stop Dose Admin Acetaminophen 1,000 mg 03/20/17 19:35 03/20/17 19:44 Ofirmev Injection - IVPB 03/20/17 19:36 1,000 mg ONCE ONE Administration Sodium Chloride 1,000 mls @ 1,000 mls/hr 03/20/17 17:40 03/20/17 18:38 Normal Saline - IV 03/20/17 18:39 1,000 mls/hr ASDIR STA Administration Ketorolac Tromethamine 30 mg 03/20/17 17:57 03/20/17 18:38 Toradol Injection - IVPUSH 03/20/17 17:58 30 mg ONCE ONE Administration Ketorolac Tromethamine 30 mg 03/20/17 19:36 03/20/17 19:44 Toradol Injection - IVPUSH 03/20/17 19:37 30 mg ONCE ONE Administration <Michele Ramsey - Last Filed: 03/20/17 21:39> - LABORATORY CBC & Chemistry Diagram: 03/20/17 18:22 03/20/17 19:30 <Roney Grajeda - Last Filed: 03/20/17 22:44> Medical Decision Making - Medical Decision Making 03/20/17 20:53 EXAM: VENOUS DUPLEX UNILATERAL Left lower extremity venous Doppler study REASON FOR EXAM: Swelling Pain COMPARISON:None FINDINGS: Transverse and longitudinal sullivan scale views obtained. There is no echogenic thrombus. There is normal color flow filling the vessels with compressibility . Doppler demonstrates phasic and spontaneous flow as normal response to distal augmentation of the common femoral, superficial femoral, popliteal and proximal calf veins. There is no suspicious solid or cystic mass. IMPRESSION: No sonographic evidence of deep vein thrombosis, left leg. Read by: Giovanna MachadoO. 03/20/17 21:39 EXAM: CT ABDOMEN AND PELVIS WITHOUT CONTRAST REASON FOR EXAM: Abdominal pain COMPARISON: None FINDINGS: Lower lung hart are clear. Cholecystectomy Subtle soft tissue haziness surrounds the pancreas that suggest possible early pancreatitis if clinically appropriate. Liver, spleen and adrenal glands are grossly unremarkable given the limitation of this non contrast exam. No renal stones are seen or evidence of obstructive uropathy. Abdominal aorta without AAA. There is no retroperitoneal hemorrhage The appendix is normal. Sigmoid diverticulosis without inflammation. Evaluation of the GI tract is limited without oral contrast. No evidence of bowel obstruction, ascites, abscess, free air or diverticulitis. Bladder and uterus grossly unremarkable. Lumbar spine and bony pelvis are intact. IMPRESSION: Possible early pancreatitis if clinically appropriate. Sigmoid diverticulosis.. No renal stones or evidence of obstructive uropathy. Appendix is normal. Read by: Giovanna MachadoO. <Michele Ramsey - Last Filed: 03/20/17 21:39> - Medical Decision Making 26 year old with multiple renal stents, lithotripsy, UTIs, and DVT/ PE presenting with left lower back pain, groin pain, and left leg pain. LLE doppler negative for DVT, CT abdomen pelvis negative for stone but demonstrated possible pancreatitis. Lipase WNL (85). UA negative, UC pending. Will inform patient of possible call back if UC returns positive. Patient's current pain is much improved. Will DC with OTC NSAID/ Tylenol instructions and have her follow up with [facility] for further workup. 03/20/17 22:23 <Roney Grajeda - Last Filed: 03/20/17 22:44> *DC/Admit/Observation/Transfer - Attestations Scribe Attestion: 03/20/17 20:54 Documentation prepared by Michele Ramsey, acting as medical underwriter for David Vasquez MD. <Michele Ramsey - Last Filed: 03/20/17 21:39> - Discharge Dispostion Admit: No <Roney Grajeda - Last Filed: 03/20/17 22:44> Diagnosis at time of Disposition: Pelvic pain Back pain Qualifiers: Back pain location: low back pain Chronicity: acute Back pain laterality: left Sciatica presence: without sciatica Qualified Code(s): M54.5 - Low back pain - Discharge Dispostion Disposition: HOME Condition at time of disposition: Improved - Referrals Referrals: Arturo Ervin MD [Primary Care Provider] - Ko Diana MD [Non Staff, Medical] - - Patient Instructions Printed Discharge Instructions: DI for Abdominal Pain-Adult Additional Instructions: We did not see infection in your urine, did not see any kidney stones on your abdominal CT. There was also no DVT on your left lower extremity doppler scan. Please use Tylenol and Ibuprofen for pain until you can see Dr. Diana for your pain as this may be a more complex pain syndrome.
[2017-03-20] MEDS ORDERED: SODIUM CHLORIDE 1,000 ML IV STA (17:40)
[2017-03-20] MEDS ORDERED: KETOROLAC TROMETHAMINE 30 MG/1 ML VIAL IVPUSH ONE ×2 (17:57→19:36)
--- NOTE | 2017-03-20 18:18 | PDOC ---
Attending Attestation - HPI HPI: 03/20/17 18:30 The patient is a 26 year old female, with a significant past medical history of multiple UTI's and kidney stones (s/p stent placements (last 1 year prior) and lithotripsy (last 6 months prior)), and hyperthyroidism, who presents to the emergency department with, left-sided flank pain and multiple episodes of emesis. She describes her flank pain as 10/10, radiating to her groin and legs, worsening upon movement. Secondary to her symptoms, she reports urinary retention. Her last episode of micturition was last night. The patient is currently on her menses. She denies recent fevers, chills, headache or dizziness. She denies recent nausea, diarrhea or constipation. She denies recent hematuria. She denies recent chest pain or shortness of breath. Allergies: As per nursing notes. Social history: Nonsmoker. Denies EtOH use and recreational drug use. Primary Care Physician: Dr. Arturo Ervin Documentation prepared by Michele Ramsey, acting as director medical surgical for David Vasquez MD. - Physicial Exam PE: 03/20/17 18:30 GENERAL: Awake, alert, and fully oriented, in no acute distress HEAD: No signs of trauma EYES: PERRLA, EOMI, sclera anicteric, conjunctiva clear ENT: Auricles normal inspection, hearing grossly normal, nares patent, oropharynx clear without exudates. Moist mucosa NECK: Normal ROM, supple, no lymphadenopathy, JVD, or masses LUNGS: Breath sounds equal, clear to auscultation bilaterally. No wheezes, and no crackles HEART: Regular rate and rhythm, normal S1 and S2, no murmurs, rubs or gallops ABDOMEN: +Left CVA tenderness. Soft, normoactive bowel sounds. No guarding, no rebound. No masses EXTREMITIES: Normal range of motion, no edema. No clubbing or cyanosis. No cords, erythema, or tenderness NEUROLOGICAL: Cranial nerves II through XII grossly intact. Normal speech, normal gait SKIN: Warm, Dry, normal turgor, no rashes or lesions noted. <Michele Ramsey - Last Filed: 03/20/17 18:30> - Resident Resident Name: Roney Grajeda - ED Attending Attestation I have performed the following: I have examined & evaluated the patient, The case was reviewed & discussed with the resident, I agree w/resident's findings & plan, Exceptions are as noted - Medical Decision Making 03/20/17 18:29 A portion of this note was written by my scribe, the my supervision. Vital Signs Temp Pulse Resp BP Pulse Ox 99.3 F 88 18 155/82 100 03/20/17 17:19 03/20/17 17:19 03/20/17 17:19 03/20/17 17:19 03/20/17 17:19 26 female with history of thyroid disorder, urinary tract infections, any stones status post lithotripsy and renal stent, stents removed presents with left flank pain for one week. Patient reports left flank pain radiating to groin. Reports subjective fevers and urinary discomfort. Denies hematuria. Differential includes renal colic versus pyelonephritis. We'll also need to rule out obstructed infected kidney stone. I agree with the resident plan to obtain labs, urinalysis and a CAT scan. 03/20/17 22:22 CBC, BMP 03/20/17 18:22 03/20/17 19:30 CMP Sodium 139 mmol/L (136-145) 03/20/17 19:30 Potassium 4.0 mmol/L (3.5-5.1) 03/20/17 19:30 Chloride 107 mmol/L (98-107) 03/20/17 19:30 Carbon Dioxide 23 mmol/L (21-32) 03/20/17 19:30 Anion Gap 9 (8-16) 03/20/17 19:30 BUN 13 mg/dL (7-18) 03/20/17 19:30 Creatinine 0.9 mg/dL (0.55-1.02) 03/20/17 19:30 Creat Clearance w eGFR > 60 (>60) 03/20/17 19:30 Random Glucose 86 mg/dL (74-106) 03/20/17 19:30 Calcium 8.3 mg/dL (8.5-10.1) L 03/20/17 19:30 Total Bilirubin 0.3 mg/dL (0.2-1.0) D 03/20/17 19:30 AST 14 U/L (15-37) L 03/20/17 19:30 ALT 26 U/L (12-78) 03/20/17 19:30 Alkaline Phosphatase 84 U/L (45-117) 03/20/17 19:30 Total Protein 7.7 g/dl (6.4-8.2) 03/20/17 19:30 Albumin 3.8 g/dl (3.4-5.0) 03/20/17 19:30 Lipase 85 U/L (73-393) 03/20/17 19:30 Urine Test Results Urine Color Yellow 03/20/17 18:06 Urine Appearance Slcloudy 03/20/17 18:06 Urine pH 5.0 (5.0-8.0) 03/20/17 18:06 Ur Specific [place] 1.028 (1.001-1.035) 03/20/17 18:06 Urine Protein Negative (NEGATIVE) 03/20/17 18:06 Urine Glucose (UA) Negative (NEGATIVE) 03/20/17 18:06 Urine Ketones 1+ (NEGATIVE) H 03/20/17 18:06 Urine Blood Negative (NEGATIVE) 03/20/17 18:06 Urine Nitrite Negative (NEGATIVE) 03/20/17 18:06 Urine Bilirubin Negative (NEGATIVE) 03/20/17 18:06 Ur Leukocyte Esterase Negative (NEGATIVE) 03/20/17 18:06 CAT scan the abdomen pelvis demonstrates possible early pancreatitis. However, the patient has no epigastric pain and the patient reports feeling better. I have low suspicion for pancreatitis at this time. We'll discharge patient with primary care physician and urology follow-up. <David Vasquez - Last Filed: 03/20/17 22:24>
[2017-03-20] MEDS ORDERED: KETOROLAC TROMETHAMINE 30 MG/1 ML VIAL ONE ×2 (18:33→19:36)
[2017-03-20 18:36] LABS: BASO % 0.2 % (0-2.0); EOS % 0.1 % (0-4.5); HEMATOCRIT 42.2 % (32.4-45.2); HEMOGLOBIN 13.7 GM/dL (10.7-15.3); LYMPH % 23.7 % (8-40); MCH 28.4 pg (25.7-33.7); MCHC 32.4 g/dl (32.0-36.0); MEAN CELL VOLUME 87.9 fl (80-96); MEAN PLT VOLUME 8.1 fl (7.5-11.1); MONO % 5.6 % (3.8-10.2); NEUT % 70.4 % (42.8-82.8); PLATELET COUNT 296 K/MM3 (134-434); RDW 14.1 % (11.6-15.6); WHITE BLOOD COUNT 13.3 K/mm3 (4.0-10.0)
[2017-03-20 18:39] LABS: URINE APPEARANCE SLCLOUDY; URINE BILIRUBIN NEGATIVE (NEGATIVE); URINE BLOOD NEGATIVE (NEGATIVE); URINE COLOR YELLOW; URINE GLUCOSE (UA) NEGATIVE (NEGATIVE); URINE KETONE 1+ (NEGATIVE); URINE LEUK ESTERASE NEGATIVE (NEGATIVE); URINE NITRITE NEGATIVE (NEGATIVE); URINE PROTEIN NEGATIVE (NEGATIVE); URINE UROBILINOGEN NEGATIVE mg/dL (0.2-1.0)
[2017-03-20 18:43] LABS: HCG,QUALITATIVE URINE NEGATIVE
[2017-03-20] MEDS ORDERED: ACETAMINOPHEN 1000 MG/100 ML VIAL (NON FORMULARY) IVPB ONE (19:35)
[2017-03-20] MEDS ORDERED: ACETAMINOPHEN INJECTION 100 ML IVPB ONE (19:36)
[2017-03-20 20:05] LABS: ALBUMIN 3.8 g/dl (3.4-5.0); ANION GAP 9 (8-16); BILIRUBIN,TOTAL 0.3 mg/dL (0.2-1.0); BLOOD UREA NITROGEN 13 mg/dL (7-18); CALCIUM 8.3 mg/dL (8.5-10.1); CHLORIDE 107 mmol/L (98-107); CO2 23 mmol/L (21-32); CREATININE 0.9 mg/dL (0.55-1.02); GLUCOSE,RANDOM 86 mg/dL (74-106); SGOT/AST 14 U/L (15-37); SGPT/ALT 26 U/L (12-78); SODIUM 139 mmol/L (136-145); TOT PROT 7.7 g/dl (6.4-8.2)
[2017-03-20 20:06] LABS: ALK PHOS 84 U/L (45-117)
== END 2017-03-20 22:48 | disposition home or self-care (01) ==
LOC: JER 17:17
PROC: 3E0337Z Introduction of Electrolytic and Water Balance Substance into Peripheral Vein, Percutaneous Approach (ICD-10-PCS; principal; 2017-03-20)
PROC: 3E033NZ Introduction of Analgesics, Hypnotics, Sedatives into Peripheral Vein, Percutaneous Approach (ICD-10-PCS; 2017-03-20)
PROC: 3E0333Z Introduction of Anti-inflammatory into Peripheral Vein, Percutaneous Approach (ICD-10-PCS; 2017-03-20)
DX: R10.2 Pelvic and perineal pain (principal); M54.5 Low back pain; F41.9 Anxiety disorder, unspecified; E05.90 Thyrotoxicosis, unspecified without thyrotoxic crisis or storm; Z87.442 Personal history of urinary calculi; Z96.0 Presence of urogenital implants
CPT/HCPCS: 36415; 74176; 80053; 81003; 83690; 84703; 85025; 87086; 93971-TC; 96361; 96365; 96375; 99284-25

== ENCOUNTER 2018-07-02 13:31 | Emergency (ER) | payer OTHER ==
[2018-07-02 13:49] VITALS: PULSE 116; TEMP 97.8; BMI 29.2
--- NOTE | 2018-07-02 14:18 | PDOC ---
History of Present Illness - General Chief Complaint: Pain Stated Complaint: KIDNEY STONES Time Seen by Provider: 07/02/18 14:16 - History of Present Illness Initial Comments: 07/02/18 14:34 The patient is a 28 year old female with a history of Kidney stones, UTIs, Hyperthyroidism who presents for evaluation of left flank pain. The patient reports a 2 week history of left sided sharp flank pain that has progressively worsened prompting her presentation to the ED for further evaluation. She notes that she noted blood in her urine 1 day ago and reports dysuria as well. She states that the pain radiates to her left groin and feels very similar to her prior kidney stones. She endorses some nausea as well, but otherwise denies fevers, chills, SOB, chest pain, or changes with bowel movements. Past History - Past Medical History Allergies/Adverse Reactions: Allergies Allergy/AdvReac Type Severity Reaction Status Date / Time azithromycin [From Zithromax] Allergy Verified 07/02/18 13:46 milk Allergy Verified 07/02/18 13:46 morphine Allergy Verified 07/02/18 13:46 Penicillins Allergy Verified 07/02/18 13:46 piperacillin sodium Allergy Verified 07/02/18 13:46 [From Zosyn] tazobactam sodium Allergy Verified 07/02/18 13:46 [From Zosyn] tomato Allergy Verified 07/02/18 13:46 Home Medications: Ambulatory Orders Naproxen [Naprosyn -] 500 mg PO BID #14 tablet 07/02/18 Cardiac Disorders: Yes (IRREGULAR HEARTBEAT) COPD: No Disorders: Yes (KIDNEY STONES,) Kidney Stones: Yes Psychiatric Problems: Yes (anxiety) Thyroid Disease: Yes (hypo para thyroid dis) - Surgical History Abdominal Surgery: Yes (rt kidney stent removal, lithotripsy) Cholecystectomy: Yes - Suicide/Smoking/Psychosocial Hx Smoking Status: Yes Smoking History: Smoker current status UNK Have you smoked in the past 12 months: No Number of Cigarettes Smoked Daily: 2 If you are a former smoker, when did you quit?: 2012 'Breaking Loose' booklet given: 06/23/14 Hx Alcohol Use: No Drug/Substance Use Hx: No Substance Use Type: None Hx Substance Use Treatment: No Review of Systems - Review of Systems Comments:: 07/02/18 14:37 Constitutional: No fevers, chills, fatigue, malaise HEENT: No Rhinorrhea, nasal congestion, visual changes Cardiovascular: No chest pain, syncope, palpitations, lightheadedness Respiratory: No Cough, SOB, Hemoptysis, Gastrointestinal: Nausea No Vomiting, Constipation, Diarrhea, Melena Genitourinary: Dysuria, Hematuria, Flank pain. No Frequency, Urgency, Hesitancy , Musculoskeletal: No Myalgia, arthralgia Skin: No rashes, itching, bruising, pallor Neurologic: No Headache, Dizziness, Numbness, Weakness, or Tingling Psychiatric: No Hallucinations. No SI or HI *Physical Exam - Vital Signs Last Vital Signs Temp Pulse Resp BP Pulse Ox 97.8 F 116 H 18 125/86 100 07/02/18 13:47 07/02/18 13:47 07/02/18 13:47 07/02/18 13:47 07/02/18 13:47 - Physical Exam Comments: 07/02/18 14:37 General Appearance: Nourished. In Mild Apparent Distress HEENT: No Pharyngeal Erythema, Tonsillar Exudate, Tonsillar Erythema Neck: No Cervical Lymphadenopathy Respiratory/Chest: Lungs Clear, Normal Breath Sounds. No Crackles, Rales, Rhonchi, Wheezing Cardiovascular: Regular Rhythm, Regular Rate. No Murmur, Gallops, Rubs Gastrointestinal/Abdominal: Normal Bowel Sounds, Soft. No Guarding, Rebound, Tenderness Musculoskeletal: No CVA Tenderness Extremity: Normal Capillary Refill Integumentary: Normal Color, Dry, Warm Neurologic: Fully Oriented, Alert, Normal Mood/Affect, Normal Response, ED Treatment Course - LABORATORY CBC & Chemistry Diagram: 07/02/18 15:35 07/02/18 15:35 Medical Decision Making - Medical Decision Making 07/02/18 14:38 The patient is a 28 year old female with a history of Kidney stones, UTIs, Hyperthyroidism who presents for evaluation of left flank pain. Differential includes but is not limited to: Kidney stones, UTI, Pyelonephritis, Pancreatitis , Infectious, Metabolic Derangement. Given the patient's history and physical exam, we will obtain a cbc, cmp, ua, urine preg, lipase, CT abdomen/pelvis to evaluate further. We will treat with iv fluids and tylenol and continue to monitor and reassess while here in the ED. 07/02/18 18:35 CBC, cmp, ua, lipase are unremarkable. CT abdomen/pelvis demonstrates no acute pathology as preliminarily read by our dispute resolution specialist radiologist. The patient was reassessed and reports improvement in their symptoms. We are comfortable discharging the patient home in stable condition. Patient and family made aware of impression and plan, return precautions discussed including but not limited to worsening pain or symptoms, fevers, or signs of infection, chest pain, respiratory distress, inability to tolerate oral intake, dehydration, syncope, or neurologic changes. The patient is to follow up with PMD and specialist as recommended within 1 week, follow up information provided and the patient will call for an appointment. The patient is to take Naproxen as instructed for duration of time and continue with supportive care, avoid triggers and precipitants. Patient is safe for outpatient follow-up. *DC/Admit/Observation/Transfer Diagnosis at time of Disposition: Renal colic - Discharge Dispostion Disposition: HOME Condition at time of disposition: Stable Decision to Admit order: No - Prescriptions Prescriptions: Naproxen [Naprosyn -] 500 mg PO BID #14 tablet - Referrals Referrals: Marta Diana MD [Staff Physician] - - Patient Instructions Printed Discharge Instructions: DI for Kidney Stones Additional Instructions: 1) Please follow-up with your primary care doctor in the next 2-3 days. Please call tomorrow to schedule a follow up appointment. If you cannot follow up with your doctor within 1 week please return to the Emergency Department for any urgent issues. 2) Your laboratory / imaging results were normal here in the ER. 3) If you have any worsening of symptoms or any other concerns please return to the ER immediately. Return if worsening symptoms including fevers, headache, vomiting, visual or hearing disturbances, abdominal pain, chest pain, shortness of breath, syncope, dehydration, inability to take things by mouth/vomiting, altered mental status, or worsening concerning symptoms. 4) Please continue taking your home medications as directed. Your medications on discharge include Naproxen Side effects may include upset stomach, abdominal pain, vomiting, or diarrhea. Do not drink alcohol with your medications. - Post Discharge Activity
[2018-07-02] MEDS ORDERED: ACETAMINOPHEN 1000 MG/100 ML VIAL (NON FORMULARY) IVPB ONE (14:21)
[2018-07-02] MEDS ORDERED: SODIUM CHLORIDE 1,000 ML IV STA (14:21)
[2018-07-02] MEDS ORDERED: HYDROmorphone HCL CARPU-JECT 2 MG/1 ML DISP.SYRIN IVPUSH ONE (15:38)
[2018-07-02] MEDS ORDERED: ONDANSETRON 4 MG/2 ML VIAL IVPUSH ONE (15:38)
[2018-07-02 15:45] LABS: BASO % 0.3 % (0-2.0); EOS % 0.2 % (0-4.5); HEMATOCRIT 43.2 % (32.4-45.2); HEMOGLOBIN 14.3 GM/dL (10.7-15.3); LYMPH % 23.1 % (8-40); MCH 29.7 pg (25.7-33.7); MEAN CELL VOLUME 90.1 fl (80-96); MEAN PLT VOLUME 8.1 fl (7.5-11.1); MONO % 4.9 % (3.8-10.2); NEUT % 71.5 % (42.8-82.8); PLATELET COUNT 282 K/MM3 (134-434); RDW 13.4 % (11.6-15.6); WHITE BLOOD COUNT 10.9 K/mm3 (4.0-10.0)
[2018-07-02 15:48] LABS: PH,URINE 7.5 (5.0-8.0); URINE APPEARANCE CLEAR; URINE BILIRUBIN NEGATIVE (NEGATIVE); URINE COLOR YELLOW; URINE GLUCOSE (UA) NEGATIVE (NEGATIVE); URINE KETONE NEGATIVE (NEGATIVE); URINE LEUK ESTERASE NEGATIVE (NEGATIVE); URINE NITRITE NEGATIVE (NEGATIVE); URINE PROTEIN NEGATIVE (NEGATIVE); URINE UROBILINOGEN 0.2 mg/dL (0.2-1.0)
[2018-07-02 15:50] LABS: HCG,QUALITATIVE URINE Negative
[2018-07-02] MEDS ORDERED: HYDROmorphone HCl 2 MG/ML VIAL ONE (16:11)
[2018-07-02] MEDS ORDERED: ONDANSETRON 4 MG/2 ML VIAL ONE (16:12)
[2018-07-02] MEDS ORDERED: ACETAMINOPHEN INJECTION 100 ML IVPB ONE (16:12)
[2018-07-02 16:21] LABS: ALK PHOS 87 U/L (45-117); ANION GAP 5 MMOL/L (8-16); BILIRUBIN,TOTAL 0.3 mg/dL (0.2-1); BLOOD UREA NITROGEN 12 mg/dL (7-18); CALCIUM 9.2 mg/dL (8.5-10.1); CHLORIDE 104 mmol/L (98-107); CO2 27 mmol/L (21-32); CREATININE 0.8 mg/dL (0.55-1.3); GLUCOSE,RANDOM 78 mg/dL (74-106); LIPASE 94 U/L (73-393); POTASSIUM 4.4 mmol/L (3.5-5.1); SGOT/AST 17 U/L (15-37); SGPT/ALT 19 U/L (13-61); SODIUM 136 mmol/L (136-145); TOT PROT 7.9 g/dl (6.4-8.2)
[2018-07-02 18:13] VITALS: BP 112/64
--- NOTE | 2018-07-02 18:25 | PDOC ---
Documentation entered by Michele Ramsey SCRIBE, acting as scribe for David Vasquez MD. David Vasquez MD: This documentation has been prepared by the [employer], SCRIBE, under my direction and personally reviewed by me in its entirety. I confirm that the documentation accurately reflects all work, treatment, procedures, and medical decision making performed by me. Attending Attestation - Resident Resident Name: Stephon Simmons - ED Attending Attestation I have performed the following: I have examined & evaluated the patient, The case was reviewed & discussed with the resident, I agree w/resident's findings & plan, Exceptions are as noted - HPI HPI: 07/02/18 15:48 The patient is a 28 year old female, with a significant past medical history of kidney stones, UTIs, hyperthyroidism, who presents to the emergency department with, 2 weeks of worsening left flank pain radiating to the groin with associated hematuria, nausea, and epigastric discomfort. Patient notes her symptoms to be similar to her prior episodes of kidney stones.She denies recent fevers, chills, headache or dizziness. She denies recent diarrhea or constipation. She denies recent chest pain or shortness of breath. Allergies: As per nursing notes. Urologist: Dr. Marta Diana. - Physicial Exam PE: 07/02/18 15:48 GENERAL: Awake, alert, and fully oriented, in no acute distress HEAD: No signs of trauma LUNGS: Breath sounds equal, clear to auscultation bilaterally. No wheezes, and no crackles HEART: Regular rate and rhythm, normal S1 and S2, no murmurs, rubs or gallops ABDOMEN/BACK:+ Left CVA tenderness. Soft, nontender.. No guarding, no rebound. EXTREMITIES: Normal range of motion, no edema. No clubbing or cyanosis. No cords, erythema, or tenderness NEUROLOGICAL: Cranial nerves II through XII grossly intact. Normal speech. SKIN: Warm, Dry, normal turgor, no rashes or lesions noted. - Medical Decision Making 07/02/18 16:05 A portion of this note was documented by [employer] services under my direction. I have reviewed the details of the note, within reason, and agree with the documentation with the following case summary and management plan written by me. Patient treated in the ED. Nursing notes are reviewed and incorporated into the medical decision-making. Vital signs reviewed. Peripheral IV access obtained by the nurse, laboratory studies are drawn and sent, reviewed and interpreted by myself. Vital Signs Temp Pulse Resp BP Pulse Ox 97.8 F 116 H 18 125/86 100 07/02/18 13:47 07/02/18 13:47 07/02/18 13:47 07/02/18 13:47 07/02/18 13:47 28-year-old female with history of kidney stones, urine tract infections, thyroid disorder presents with 2 weeks of left flank pain worsening since yesterday. She thought she may have had tactile fevers but never measured. Yesterday, she noted some hematuria. Differential includes kidney stones, pyelonephritis, cystitis. We'll obtain labs , urinalysis, urine culture, spiral CT and reassess. 07/02/18 16:22 CBC, BMP 07/02/18 15:35 07/02/18 15:35 CMP Sodium 136 mmol/L (136-145) 07/02/18 15:35 Potassium 4.4 mmol/L (3.5-5.1) 07/02/18 15:35 Chloride 104 mmol/L (98-107) 07/02/18 15:35 Carbon Dioxide 27 mmol/L (21-32) 07/02/18 15:35 Anion Gap 5 MMOL/L (8-16) L 07/02/18 15:35 BUN 12 mg/dL (7-18) 07/02/18 15:35 Creatinine 0.8 mg/dL (0.55-1.3) 07/02/18 15:35 Creat Clearance w eGFR 85.41 (>60) 07/02/18 15:35 Random Glucose 78 mg/dL (74-106) 07/02/18 15:35 Calcium 9.2 mg/dL (8.5-10.1) 07/02/18 15:35 Total Bilirubin 0.3 mg/dL (0.2-1) 07/02/18 15:35 AST 17 U/L (15-37) 07/02/18 15:35 ALT 19 U/L (13-61) 07/02/18 15:35 Alkaline Phosphatase 87 U/L (45-117) 07/02/18 15:35 Total Protein 7.9 g/dl (6.4-8.2) 07/02/18 15:35 Albumin 4.0 g/dl (3.4-5.0) 07/02/18 15:35 Lipase 94 U/L (73-393) 07/02/18 15:35 Urine Test Results Urine Color Yellow 07/02/18 13:49 Urine Appearance Clear 07/02/18 13:49 Urine pH 7.5 (5.0-8.0) D 07/02/18 13:49 Ur Specific [place] 1.011 (1.010-1.035) 07/02/18 13:49 Urine Protein Negative (NEGATIVE) 07/02/18 13:49 Urine Glucose (UA) Negative (NEGATIVE) 07/02/18 13:49 Urine Ketones Negative (NEGATIVE) 07/02/18 13:49 Urine Blood Negative (NEGATIVE) 07/02/18 13:49 Urine Nitrite Negative (NEGATIVE) 07/02/18 13:49 Urine Bilirubin Negative (NEGATIVE) 07/02/18 13:49 Ur Leukocyte Esterase Negative (NEGATIVE) 07/02/18 13:49 07/02/18 18:07 PGU negative. 07/02/18 18:11 CT scan shows no calculi. No appendicitis. No bowel obstruction. Tubular appearance right adnexa, question hydrosalpinx. However, pt has no RLQ pain or pelvic pain. At this time, I have little suspicion for tubular abscess, PID, or tubo-ovarian abscess. Will d/c with supportive care. It is possible pt may have passed a stone earlier or may MSK pain. Pt feels more comfortable now.
== END 2018-07-02 18:30 | disposition home or self-care (01) ==
LOC: JER 13:31
PROC: 3E0337Z Introduction of Electrolytic and Water Balance Substance into Peripheral Vein, Percutaneous Approach (ICD-10-PCS; principal; 2018-07-02)
PROC: 3E033NZ Introduction of Analgesics, Hypnotics, Sedatives into Peripheral Vein, Percutaneous Approach (ICD-10-PCS; 2018-07-02)
PROC: 3E033NZ Introduction of Analgesics, Hypnotics, Sedatives into Peripheral Vein, Percutaneous Approach (ICD-10-PCS; 2018-07-02)
PROC: 3E033GC Introduction of Other Therapeutic Substance into Peripheral Vein, Percutaneous Approach (ICD-10-PCS; 2018-07-02)
DX: N23 Unspecified renal colic (principal); Z87.442 Personal history of urinary calculi
CPT/HCPCS: 36415; 74176-TC; 80053; 81003; 83690; 84703; 85025; 87077; 87086; 96361; 96374; 96375; 99283-25; J0131; J7030

== ENCOUNTER 2021-10-06 15:49 | Emergency (ER) | payer OTHER ==
[2021-10-06 16:15] VITALS: BP 119/86; PULSE 83; RESP 18; TEMP 98.2; BMI 35.4
[2021-10-06] MEDS ORDERED: ONDANSETRON 4 MG/2 ML VIAL IVPB ONE (18:16)
[2021-10-06] MEDS ORDERED: SODIUM CHLORIDE 1,000 ML IV STA (18:16)
[2021-10-06] MEDS ORDERED: ONDANSETRON 4 MG/2 ML VIAL ONE (19:16)
[2021-10-06 19:40] LABS: BASO % 0.2 % (0-2.0); EOS % 0.3 % (0-4.5); HEMATOCRIT 40.6 % (32.4-45.2); HEMOGLOBIN 13.6 GM/dL (10.7-15.3); LYMPH % 19.3 % (8-40); MCH 30.1 pg (25.7-33.7); MCHC 33.4 g/dl (32.0-36.0); MEAN CELL VOLUME 90.1 fl (80-96); MEAN PLT VOLUME 7.7 fl (7.5-11.1); MONO % 5.8 % (3.8-10.2); NEUT % 74.4 % (42.8-82.8); PLATELET COUNT 292 10^3/uL (134-434); RBC 4.51 M/mm3 (3.60-5.2); RDW 13.6 % (11.6-15.6); WHITE BLOOD COUNT 13.7 K/mm3 (4.0-10.0)
[2021-10-06 19:47] LABS: PH,URINE 6.5 (5.0-8.0); URINE APPEARANCE CLEAR; URINE BILIRUBIN NEGATIVE (NEGATIVE); URINE COLOR YELLOW; URINE GLUCOSE (UA) NEGATIVE (NEGATIVE); URINE KETONE 4+ (NEGATIVE); URINE LEUK ESTERASE NEGATIVE (NEGATIVE); URINE NITRITE NEGATIVE (NEGATIVE); URINE PROTEIN TRACE (NEGATIVE); URINE UROBILINOGEN 0.2 mg/dL (0.2-1.0)
[2021-10-06 20:01] LABS: BLOOD UREA NITROGEN 8.9 mg/dL (7-18); CALCIUM 8.8 mg/dL (8.5-10.1)
[2021-10-06 20:02] LABS: ALBUMIN 3.9 g/dl (3.4-5.0)
[2021-10-06 20:05] LABS: CREATININE 0.7 mg/dL (0.55-1.3)
[2021-10-06 20:06] LABS: BILIRUBIN,TOTAL 0.5 mg/dL (0.2-1); TOT PROT 7.5 g/dl (6.4-8.2)
== END 2021-10-06 21:23 | disposition home or self-care (01) ==
LOC: JER 15:49
PROC: 3E033GC Introduction of Other Therapeutic Substance into Peripheral Vein, Percutaneous Approach (ICD-10-PCS; principal; 2021-10-06)
DX: O21.9 Vomiting of pregnancy, unspecified (principal); Z3A.01 Less than 8 weeks gestation of pregnancy
CPT/HCPCS: 36415; 76817-TC; 80053; 81003; 84702; 85025; 87086; 99284-25

== ENCOUNTER 2022-04-14 14:21 | Emergency (ER) | payer OTHER ==
[2022-04-14 14:29] VITALS: BP 132/99; PULSE 99; RESP 19; TEMP 98.1; BMI 35.4
[2022-04-14] MEDS ORDERED: DIPHTH,PERTUSS(ACELL),TET 0.5 ML DISP.SYRIN IM ONE ×2 (14:50→15:04)
[2022-04-14] MEDS ORDERED: IBUPROFEN 600 MG TABLET (FP) PO ONE ×2 (14:50→15:03)
[2022-04-14] MEDS ORDERED: BACITRACIN ZINC 15 GM TUBE TOPICAL OINTMENT ONE (15:38)
== END 2022-04-14 15:53 | disposition home or self-care (01) ==
LOC: JERFT 14:21
PROC: 2W3KX1Z Immobilization of Left Finger using Splint (ICD-10-PCS; principal; 2022-04-14)
PROC: 3E0234Z Introduction of Serum, Toxoid and Vaccine into Muscle, Percutaneous Approach (ICD-10-PCS; 2022-04-14)
DX: S61.213A Laceration without foreign body of left middle finger without damage to nail, initial encounter (principal); S67.191A Crushing injury of left index finger, initial encounter; S67.193A Crushing injury of left middle finger, initial encounter; W23.1XXA Caught, crushed, jammed, or pinched between stationary objects, initial encounter
CPT/HCPCS: 29130; 73140-TC-LT-FY; 90471; 90715; 99284-25

== ENCOUNTER 2022-06-01 18:27 | Emergency (ER) | payer OTHER ==
[2022-06-01 18:56] VITALS: BP 119/84; PULSE 103; RESP 18; TEMP 98.7; BMI 35.4
[2022-06-01] MEDS ORDERED: FAMOTIDINE 20 MG/50 ML IVPB 20 MG/50 ML MG IVPB ONE ×2 (19:55→20:31)
[2022-06-01] MEDS ORDERED: ONDANSETRON 4 MG/2 ML VIAL IVPUSH ONE (19:55)
[2022-06-01] MEDS ORDERED: ACETAMINOPHEN 1000 MG/100 ML BAG IVPB ONE (19:55)
[2022-06-01] MEDS ORDERED: LACTATED RINGERS SOLUTION 1,000 ML/1,000 ML INFUS.BAG IV SCH (20:00)
[2022-06-01] MEDS ORDERED: ONDANSETRON 4 MG/2 ML VIAL ONE (20:31)
[2022-06-01] MEDS ORDERED: ACETAMINOPHEN INJECTION 100 ML IVPB ONE (20:31)
[2022-06-01 21:18] LABS: BASO % 0.3 % (0-2.0); HEMOGLOBIN 13.4 GM/dL (10.7-15.3); LYMPH % 19.2 % (8-40); MCH 30.8 pg (25.7-33.7); MCHC 34.5 g/dl (32.0-36.0); MEAN CELL VOLUME 89.4 fl (80-96); MEAN PLT VOLUME 8.1 fl (7.5-11.1); MONO % 8.5 % (3.8-10.2); PLATELET COUNT 245 10^3/uL (134-434); RBC 4.36 M/mm3 (3.60-5.2)
[2022-06-01 21:30] LABS: EPI CELLS >36 /uL (0-25.1); HYALINE CASTS 2 /uL (0-3.1); URINE APPEARANCE CLOUDY; URINE BACTERIA 917 /uL (0-1359); URINE BILIRUBIN NEGATIVE (NEGATIVE); URINE COLOR YELLOW; URINE GLUCOSE (UA) NEGATIVE (NEGATIVE); URINE KETONE 2+ (NEGATIVE); URINE LEUK ESTERASE NEGATIVE (NEGATIVE); URINE NITRITE NEGATIVE (NEGATIVE); URINE PROTEIN TRACE (NEGATIVE); URINE RBC 138 /uL (0-23.9); URINE UROBILINOGEN 0.2 mg/dL (0.2-1.0); URINE WBC 37 /uL (0-25.8)
[2022-06-01 21:32] LABS: ALBUMIN 3.7 g/dl (3.4-5.0); BLOOD UREA NITROGEN 8.3 mg/dL (7-18); CALCIUM 9.2 mg/dL (8.5-10.1)
[2022-06-01 21:35] LABS: CREATININE 0.9 mg/dL (0.55-1.3)
[2022-06-01 21:37] LABS: BILIRUBIN,TOTAL 0.4 mg/dL (0.2-1); TOT PROT 7.4 g/dl (6.4-8.2)
[2022-06-01] MEDS ORDERED: KETOROLAC TROMETHAMINE 15 MG/ML VIAL IVPUSH ONE (21:48)
[2022-06-01] MEDS ORDERED: KETOROLAC TROMETHAMINE 15 MG/ML VIAL ONE (22:28)
[2022-06-02] MEDS ORDERED: KETOROLAC TROMETHAMINE 15 MG/ML VIAL IVPUSH ONE (00:35)
[2022-06-02] MEDS ORDERED: KETOROLAC TROMETHAMINE 15 MG/ML VIAL ONE (00:38)
== END 2022-06-02 02:01 | disposition home or self-care (01) ==
LOC: JER 18:27
PROC: 3E033GC Introduction of Other Therapeutic Substance into Peripheral Vein, Percutaneous Approach (ICD-10-PCS; principal; 2022-06-01)
PROC: 3E033NZ Introduction of Analgesics, Hypnotics, Sedatives into Peripheral Vein, Percutaneous Approach (ICD-10-PCS; 2022-06-01)
PROC: 3E0333Z Introduction of Anti-inflammatory into Peripheral Vein, Percutaneous Approach (ICD-10-PCS; 2022-06-01)
PROC: 3E0333Z Introduction of Anti-inflammatory into Peripheral Vein, Percutaneous Approach (ICD-10-PCS; 2022-06-01)
PROC: 3E033GC Introduction of Other Therapeutic Substance into Peripheral Vein, Percutaneous Approach (ICD-10-PCS; 2022-06-01)
DX: R11.2 Nausea with vomiting, unspecified (principal); R19.7 Diarrhea, unspecified; Z20.822 Contact with and (suspected) exposure to COVID-19
CPT/HCPCS: 0241U-QW; 36415; 74176-TC; 80053; 81003; 83690; 84703; 85025; 87077; 87086; 87186; 99284-25

== ENCOUNTER 2022-06-03 17:32 | Emergency (ER) | payer OTHER ==
[2022-06-03 17:54] VITALS: BP 124/88; BMI 35.4
[2022-06-03] MEDS ORDERED: LORazepam 2 MG/ML SDV VIAL IVPUSH ONE (17:55)
[2022-06-03 18:38] LABS: ALBUMIN 4.1 g/dl (3.4-5.0); BILIRUBIN,TOTAL 0.5 mg/dl (0.2-1); CREATININE 0.9 mg/dl (0.55-1.3); MAGNESIUM 1.8 mg/dL (1.8-2.4); PHOSPHOROUS 2.3 mg/dl (2.5-4.9)
[2022-06-03] MEDS ORDERED: METHOCARBAMOL 500 MG TABLET PO ONE (19:49)
[2022-06-03] MEDS ORDERED: METHOCARBAMOL 500 MG TABLET ONE (19:52)
[2022-06-03 20:38] LABS: BASO % 0.2 % (0-2.0); EOS % 0.2 % (0-4.5); HEMATOCRIT 39.3 % (32.4-45.2); HEMOGLOBIN 13.3 GM/dL (10.7-15.3); LYMPH % 26.5 % (8-40); MCH 30.5 pg (25.7-33.7); MCHC 33.8 g/dl (32.0-36.0); MEAN CELL VOLUME 90.3 fl (80-96); MEAN PLT VOLUME 8.5 fl (7.5-11.1); MONO % 8.9 % (3.8-10.2); NEUT % 64.2 % (42.8-82.8); PLATELET COUNT 277 10^3/uL (134-434); RBC 4.35 M/mm3 (3.60-5.2); RDW 13.8 % (11.6-15.6); WHITE BLOOD COUNT 10.8 K/mm3 (4.0-10.0)
[2022-06-03] MEDS ORDERED: predniSONE 20 MG TABLET (UD) ONE (20:56)
[2022-06-03 21:01] VITALS: PULSE 96; RESP 24
[2022-06-03] MEDS ORDERED: predniSONE 20 MG TABLET (UD) PO ONE (21:02)
== END 2022-06-03 21:10 | disposition home or self-care (01) ==
LOC: FER 17:32
PROC: 3E0333Z Introduction of Anti-inflammatory into Peripheral Vein, Percutaneous Approach (ICD-10-PCS; principal; 2022-06-03)
DX: R25.2 Cramp and spasm (principal); G51.0 Bell's palsy
CPT/HCPCS: 36415; 80053; 83735; 84100; 84439; 84443; 84703; 85025; 99283-25

== ENCOUNTER 2022-08-17 22:28 | Emergency (ER) | payer OTHER ==
[2022-08-17 22:56] VITALS: BP 126/90; PULSE 88; RESP 18; TEMP 98.1; BMI 33.6
[2022-08-17] MEDS ORDERED: KETOROLAC TROMETHAMINE 60 MG/2 ML VIAL IM ONE (23:05)
[2022-08-17] MEDS ORDERED: KETOROLAC TROMETHAMINE 60 MG/2 ML VIAL ONE (23:07)
== END 2022-08-18 00:03 | disposition home or self-care (01) ==
LOC: FER 22:28
PROC: 3E0233Z Introduction of Anti-inflammatory into Muscle, Percutaneous Approach (ICD-10-PCS; principal; 2022-08-17)
DX: M79.10 Myalgia, unspecified site (principal); R51.9 Headache, unspecified; S16.1XXA Strain of muscle, fascia and tendon at neck level, initial encounter; S60.221A Contusion of right hand, initial encounter; S60.222A Contusion of left hand, initial encounter; S80.11XA Contusion of right lower leg, initial encounter; S80.12XA Contusion of left lower leg, initial encounter; V87.7XXA Person injured in collision between other specified motor vehicles (traffic), initial encounter
CPT/HCPCS: 72050-TC-FY; 81025; 99284-25

== ENCOUNTER 2023-06-01 18:33 | Emergency (ER) | payer OTHER ==
[2023-06-01 18:45] VITALS: RESP 18; BMI 35.4
[2023-06-01] MEDS: SODIUM CHLORIDE 0.9% 1000 ML INFUS.BAG IV STA (20:38)
[2023-06-01 20:45] LABS: BASO % 0.4 % (0-2.0); EOS % 0.7 % (0-4.5); HEMATOCRIT 38.5 % (32.4-45.2); HEMOGLOBIN 12.9 GM/dL (10.7-15.3); LYMPH % 29.1 % (8-40); MCH 30.8 pg (25.7-33.7); MCHC 33.4 g/dl (32.0-36.0); MEAN CELL VOLUME 92.3 fl (80-96); MEAN PLT VOLUME 7.4 fl (7.5-11.1); MONO % 6.7 % (3.8-10.2); NEUT % 63.1 % (42.8-82.8); PLATELET COUNT 283 10^3/uL (134-434); RBC 4.17 M/mm3 (3.60-5.2); RDW 13.6 % (11.6-15.6); WHITE BLOOD COUNT 12.3 K/mm3 (4.0-10.0)
[2023-06-01] MEDS ORDERED: FENTANYL CITRATE/PF 50 MCG/ML VIAL ONE (20:53)
[2023-06-01 21:07] LABS: BLOOD UREA NITROGEN 11.6 mg/dL (7-18)
[2023-06-01 21:09] LABS: ALBUMIN 3.6 g/dl (3.4-5.0)
[2023-06-01 21:10] LABS: CREATININE 0.8 mg/dL (0.55-1.3)
[2023-06-01 21:13] LABS: BILIRUBIN,TOTAL 0.4 mg/dL (0.2-1); TOT PROT 7.1 g/dl (6.4-8.2)
[2023-06-01 21:15] LABS: EPI CELLS 14 /uL (0-25.1); HYALINE CASTS 2 /uL (0-3.1); URINE APPEARANCE CLOUDY; URINE BACTERIA 115 /uL (0-1359); URINE BILIRUBIN NEGATIVE (NEGATIVE); URINE COLOR RED; URINE GLUCOSE (UA) NEGATIVE (NEGATIVE); URINE KETONE NEGATIVE (NEGATIVE); URINE LEUK ESTERASE 2+ (NEGATIVE); URINE NITRITE NEGATIVE (NEGATIVE); URINE PROTEIN 1+ (NEGATIVE); URINE RBC 4672 /uL (0-23.9); URINE WBC 403 /uL (0-25.8)
[2023-06-01] MEDS ORDERED: CEFTRIAXONE 1 GM/50 ML BAG ONE (22:53)
[2023-06-01] MEDS: CEFTRIAXONE 1,000 MG in DEXTROSE 5%-WATER - 50 ML IVPB ONE (23:08)
[2023-06-01] MEDS ORDERED: KETOROLAC TROMETHAMINE 15 MG/ML VIAL ONE (23:49)
[2023-06-02] MEDS: KETOROLAC TROMETHAMINE 15 MG/ML VIAL IVPUSH ONE (00:19)
[2023-06-02 02:10] VITALS: BP 116/67; PULSE 53; TEMP 98.4
== END 2023-06-02 02:19 | disposition home or self-care (01) ==
LOC: JER 18:33
PROC: 3E03329 Introduction of Other Anti-infective into Peripheral Vein, Percutaneous Approach (ICD-10-PCS; principal; 2023-06-01)
PROC: 3E030GC Introduction of Other Therapeutic Substance into Peripheral Vein, Open Approach (ICD-10-PCS; 2023-06-01)
PROC: 3E030GC Introduction of Other Therapeutic Substance into Peripheral Vein, Open Approach (ICD-10-PCS; 2023-06-02)
DX: O04.6 Delayed or excessive hemorrhage following (induced) termination of pregnancy (principal); R10.31 Right lower quadrant pain; R10.32 Left lower quadrant pain; R30.0 Dysuria; N30.00 Acute cystitis without hematuria
CPT/HCPCS: 36415; 76830-TC; 80053; 81003; 84702; 85025; 86850; 86900; 86901; 87086; 87491; 87591; 87661; 96365; 96375; 99284-25

== ENCOUNTER 2023-07-13 20:26 | Emergency (ER) | payer OTHER ==
[2023-07-13 20:31] VITALS: BP 123/86; PULSE 90; RESP 16; TEMP 97.6; BMI 33.6
[2023-07-13] MEDS ORDERED: ACETAMINOPHEN 325 MG TABLET (FP) ONE (21:43)
[2023-07-13] MEDS: ACETAMINOPHEN 500 MG TABLET (FP) PO ONE (21:47)
[2023-07-13] MEDS: LIDOCAINE 5% TOPICAL PATCH TP ONE (21:47)
[2023-07-13] MEDS ORDERED: LIDOCAINE 4% PATCH TP ONE (21:55)
[2023-07-13] MEDS: LIDOCAINE 4% PATCH TP ONE (22:11)
[2023-07-13] MEDS: LIDOCAINE PATCH REMOVAL MC SCH ×2 (22:11)
[2023-07-13] MEDS ORDERED: KETOROLAC TROMETHAMINE 30 MG/1 ML VIAL ONE (22:35)
[2023-07-13] MEDS: KETOROLAC TROMETHAMINE 30 MG/1 ML VIAL IM ONE (22:43)
== END 2023-07-13 23:44 | disposition home or self-care (01) ==
LOC: JER 20:26
PROC: 3E023GC Introduction of Other Therapeutic Substance into Muscle, Percutaneous Approach (ICD-10-PCS; principal; 2023-07-13)
DX: M25.561 Pain in right knee (principal); M25.551 Pain in right hip; M79.10 Myalgia, unspecified site
CPT/HCPCS: 73502-TC-RT-FY; 73562-TC-RT-FY; 84703; 96372; 99284-25